=== PATIENT | male | born 1950 | race Caucasian/White ===

== ENCOUNTER → 2019-04-24 11:23 | Outpatient (BNVA) | payer MEDICARE, OTHER, SELFPAY | PROVIDERS: Visit Provider Internal Medicine Cardiovascular Disease | DX: I48.91 Unspecified atrial fibrillation (principal) | CPT/HCPCS: 85610 ==

== ENCOUNTER → 2019-05-22 11:31 | Outpatient (BNVA) | payer MEDICARE, OTHER, SELFPAY | PROVIDERS: Family Provider Family Medicine; Visit Provider Internal Medicine Cardiovascular Disease | DX: I48.91 Unspecified atrial fibrillation (principal); Z98.890 Other specified postprocedural states | CPT/HCPCS: 85610 ==

== ENCOUNTER → 2019-06-19 11:20 | Outpatient (BNVA) | payer MEDICARE, OTHER, SELFPAY | PROVIDERS: Family Provider Family Medicine; Visit Provider Internal Medicine Cardiovascular Disease | DX: I48.91 Unspecified atrial fibrillation (principal) | CPT/HCPCS: 85610 ==

== ENCOUNTER → 2019-12-25 13:29 | Outpatient (BNVA) | payer MEDICARE, OTHER, SELFPAY | PROVIDERS: Family Provider Family Medicine; Visit Provider Internal Medicine Cardiovascular Disease | DX: I25.10 Atherosclerotic heart disease of native coronary artery without angina pectoris (principal); I48.91 Unspecified atrial fibrillation; I50.9 Heart failure, unspecified; I73.9 Peripheral vascular disease, unspecified | CPT/HCPCS: 80048; 85025 ==

== ENCOUNTER 2020-06-27 18:34 | Emergency (ER) | payer MEDICARE, OTHER, SELFPAY ==
[2020-06-27 18:59] VITALS: BP 143/74; PULSE 86; RESP 18; TEMP 36.3; O2SAT 97; BMI 26.9
--- NOTE | 2020-06-27 19:37 | W.ED.GENADLT ---
HPI - General Adult General: Chief complaint: General Medical Stated complaint: took 3 billy seltzer plus promax gels, halluctinati Time Seen by Provider: 06/27/20 19:36 Source: patient Mode of arrival: ambulatory Limitations: no limitations History of Present Illness: HPI narrative: Patient for the last 3 days had been using some fmlj-ugk-osvoblp Billy-Cordova plus cold medicine. His spouse noticed that he had been sleepwalking at night and having episodes of confusion. Patient reports feeling better today after figuring out that it was medication causing his issue. Patient's last dose of medicine was last night. Patient does report some increased nasal drainage and occasional increase in his shortness of breath. Patient has a history of coronary artery disease, CHF, and atrial fibrillation. Patient comes in tonight just for concerns that nothing else was going on causing the symptoms. Associated symptoms: Reports dyspnea Review of Systems General: Reports: 10 or more systems reviewed and unremarkable except in HPI and below Resp: Reports: dyspnea [facility] ED PFSH: Medical History Asthma Atherosclerosis Atrial fibrillation CAD (coronary artery disease) CHF (congestive heart failure) History of DVT (deep vein thrombosis) Peripheral Vascular Disease Surgical History S/P AAA (abdominal aortic aneurysm) repair S/P CABG (coronary artery bypass graft) Family History Mother Diabetes Father Hypertension Social History Smoking and tobacco status: current every day smoker cigarettes Physical Exam Const: COMMON NORMALS: no acute distress and patient oriented x3 GENERAL APPEARANCE: cooperative HENMT: COMMON NORMALS: normocephalic and Normal external nose present HEAD & SCALP: normal to inspection and normocephalic NOSE: Normal external nose present MOUTH: Normal oral and palatal mucosa present THROAT: posterior oropharynx normal Eye: GENERAL EYE: appearance normal, both eyes and all related structures Neck/C-Spine: COMMON NORMALS: full ROM Lymph: LYMPHATIC: no lymphadenopathy noted Chest: COMMONS NORMALS: normal inspection of the chest Resp: COMMON NORMALS: normal respiratory effort EFFORT & INSPECTION: Yes able to speak in complete sentences Cardio: COMMON NORMALS: regular rate and regular rhythm RATE: regular rate RHYTHM: regular rhythm GI: COMMON NORMALS: non-tender : COMMON NORMALS: Yes no CVA tenderness BLADDER/KIDNEY EXAM: Yes no CVA tenderness Back/Pelvis: COMMON NORMALS: no CVA tenderness and thoracic and lumbar spine normal to inspection Extremity: COMMON NORMALS: normal to inspection Neuro: COMMON NORMALS: patient oriented x3 and moves all extremities Psych: COMMON NORMALS: mental status grossly normal and cooperative Skin: COMMON NORMALS: no rashes or lesions noted GENERAL SKIN EXAM: no rashes or lesions noted Course Vital Signs: Vital signs: Vital Signs Temperature 97.3 F L 06/27/20 18:59 Pulse Rate 80 06/27/20 20:04 Respiratory Rate 18 06/27/20 18:59 Blood Pressure 119/67 06/27/20 20:04 Pulse Oximetry 95 06/27/20 20:04 MDM - General Adult MDM Narrative: Medical decision making narrative: Patient comes in today due to concerns of difficulty sleeping and hallucinations. Patient had been using some lgef-ndq-xmztias Billy-Cordova cold medicine and had noticed that it could cause the symptoms. Patient came in to be checked due to his history of congestive heart failure. On exam lungs are decreased in the bases but no adventitious sounds. Heart rates irregular. Skin is warm and dry. Vital signs were normal. Differential diagnosis includes adverse drug effect, pneumonia, CHF, dementia. Laboratory values were unremarkable. Chest x-ray noted cardiomegaly. Reviewed exam with patient with recommendations for treatment and follow-up. Patient reported understanding agreed to plan. Lab Data: Labs: Lab Results 06/27/20 06/27/20 Range/Units 20:02 20:02 WBC 7.5 (4.0-10.0) 10^3/ uL RBC 4.31 (4.1-5.3) 10^6/u L Hgb 14.6 (11.7-16.6) g/dL Hct 45.3 (42.0-52.0) % MCV 105.1 H (80-94) fL MCH 33.9 (28.0-34.0) pg MCHC 32.2 (30.0-36.0) g/dL RDW 14.5 (12.1-15.1) % Plt Count 153 (130-400) 10^3/c mm MPV 10.6 H (7.4-10.4) fL Neut % (Auto) 60.9 % Lymph % (Auto) 27.0 % [place] % (Auto) 9.5 % Eos % (Auto) 1.2 % Baso % (Auto) 1.3 % Neut # (Auto) 4.56 (1.8-7.7) 10^3/u L Lymph # (Auto) 2.0 (0.8-4.8) 10^3/u L [place] # (Auto) 0.7 (0.2-0.9) 10^3/u L Eos # (Auto) 0.1 (0.0-0.8) 10^3/u L Baso # (Auto) 0.1 (0.0-0.1) 10^3/u L Nucleated RBC % (a uto) 0 % Nucleated RBCs # 0.0 /100WBC Sodium 137 (136-145) mmol/L Potassium 3.7 (3.5-5.1) mmol/L Chloride 100 (98-107) mmol/L Carbon Dioxide 24 (22-29) mmol/L Anion Gap 16.7 (5-19) BUN 19 (8-23) mg/dL Creatinine 0.8 (0.7-1.2) mg/dL GFR Calculation Not Reportable Glucose 102 (65-115) mg/dL Calculated Osmolal ity 286 (285-295) mOsm/k g Calcium 9.2 (8.5-10.5) mg/dL Total Bilirubin 2.2 H (0.15-1.2) mg/dL AST 24 (0-40) U/L ALT 30 (0-41) U/L Alkaline Phosphata se 73 (40-130) IU/L Total Protein 7.0 (6.6-8.7) g/dL Albumin 3.9 (3.5-5.2) g/dL Globulin 3.1 (1.3-4.6) g/dL EKG Data^: EKG 1: Attestation: I personally reviewed and interpreted this EKG as follows: (2009, EKG shows a sinus rhythm with frequent PVCs. No ST elevation. Left ventricular hypertrophy was noted on the EKG also. Artifact was present.) Discharge Plan Discharge Patient Disposition: Home Clinical Impression: Adverse drug effect Qualifiers: Encounter type: initial encounter Qualified Code(s): T50.905A - Adverse effect of unspecified drugs, medicaments and biological substances, initial encounter CHF (congestive heart failure) Qualifiers: Heart failure type: unspecified Heart failure chronicity: chronic Qualified Code(s): I50.9 - Heart failure, unspecified Condition: Stable Prescriptions: No Action diphenhydramine HCl [Benadryl] 25 mg capsule 25 mg PO DAILY PRNRF: 0 simvastatin 40 mg tablet 40 mg PO QDAY 90 Days Qty: 90 RF: 4 aspirin [Adult Low Dose Aspirin] 81 mg tablet,delayed release (DR/EC) 81 mg PO QDAY RF: 0 montelukast [Singulair] 10 mg tablet 10 mg PO DAILY RF: 0 warfarin 4 mg tablet 4 mg PO DIRECTED Qty: 90 RF: 1 warfarin 1 mg tablet 1 mg PO TID Qty: 270 RF: 0 warfarin 5 mg tablet 5 mg PO DIRECTED RF: 0 potassium chloride [Klor-Con M20] 20 mEq tablet,ER particles/crystals 20 meq PO BID Qty: 180 RF: 3 furosemide 80 mg tablet 80 mg PO BID Qty: 180 RF: 3 Discharge Orders: Discharge ED (Routine); Ordered 06/27/20 Ordered By: Casper Juarez Referrals: Ibrahima Haynes MD [Primary Care Provider] - Discharge Diet: Usual diet Discharge Activity: Increase activity as tolerated Patient Instructions: Altered Mental Status (ED), Opioid Safety Activity Restrictions/Additional Instructions: Avoid the use of medications with phenylephrine or dextromethorphan. I would recommend not using diphenhydramine routinely for your allergy symptoms. It is recommended that people over the age of 65 avoid Benadryl. Diphenhydramine, Benadryl, sometimes can lead to confusion or insomnia. You can use loratadine, Claritin, or cetirizine, Zyrtec, for allergy symptoms. These 2 medications have been proven to be much safer in the older population. Continue with routine medications otherwise as prescribed. Follow-up with primary care or independent living specialist for other treatment. Return to the emergency department for new concerns. Coding Level of Care Code ED Can Line Examiner for Ilene Fwd Exam Comprehensive
--- NOTE | 2020-06-27 19:49 | XRR_ITS ---
PROCEDURE INFORMATION: Exam: XR Chest Exam date and time: 06/27/2020 7:53 PM Age: 69 years old Clinical indication: Dyspnea; Additional info: Dyspnea on exertion TECHNIQUE: Imaging protocol: XR of the chest Views: 1 view. COMPARISON: CR Chest 1 view [id number] 08/03/2017 5:10 AM FINDINGS: Lungs: The lungs are hyperinflated, consistent with COPD. Mild pulmonary venous congestion demonstrated. No consolidative pulmonary infiltrates are noted. Pleural spaces: No pleural effusion. No pneumothorax. Heart/Mediastinum: Cardiomegaly is present. Vasculature: The thoracic aorta is mildly atherosclerotic. Bones/joints: Median sternotomy noted. XR/XR chest 1V portable [id number] IMPRESSION: 1. Cardiomegaly is present. 2. The lungs are hyperinflated, consistent with COPD. 3. Mild pulmonary venous congestion demonstrated. No consolidative pulmonary infiltrates are noted. 4. There is no interval change from the prior examination.
--- NOTE | 2020-06-27 19:54 | ECG_ITS ---
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 Measurements Intervals [place] Rate: 76 P: 25 [place]: 167 QRS: 48 QRSD: 124 T: 236 QT: 443 QTc: 499 Interpretive Statements SINUS RHYTHM WITH FREQUENT VENTRICULAR PREMATURE COMPLEXES LEFT VENTRICULAR HYPERTROPHY AND ST-T CHANGE [VOLTAGE CRITERIA PLUS ST/T ABNORMALITY] Compared to ECG 07/31/2017 13:17:55 Ventricular premature complex(es) now present Left ventricular hypertrophy now present ST (T wave) deviation now present Myocardial infarct finding no longer present T-wave abnormality no longer present Possible ischemia no longer present Electronically Signed On 06-28-2020 22:38:17 CDT by Rissa Badillo M.D. [id number]
[2020-06-27 20:04] VITALS: BP 119/67; PULSE 80; O2SAT 95
[2020-06-27 20:07] LABS: Basophils # 0.1 10^3/uL (0.0-0.1); Basophils % 1.3 %; Eosinophils # 0.1 10^3/uL (0.0-0.8); Eosinophils % 1.2 %; Hematocrit 45.3 % (42.0-52.0); Hemoglobin 14.6 g/dL (11.7-16.6); Mean Corpuscular HGB Conc 32.2 g/dL (30.0-36.0); Mean Corpuscular Hemoglobin 33.9 pg (28.0-34.0); Mean Corpuscular Volume 105.1 fL (80-94); Mean Platelet Volume 10.6 fL (7.4-10.4); Monocytes # 0.7 10^3/uL (0.2-0.9); Monocytes % 9.5 %; Neutrophils # 4.56 10^3/uL (1.8-7.7); Neutrophils % 60.9 %; Nucleated Red Blood Cells % 0 %; Platelet Count 153 10^3/cmm (130-400); Red Blood Count 4.31 10^6/uL (4.1-5.3); Red Cell Distribution Width 14.5 % (12.1-15.1); White Blood Count 7.5 10^3/uL (4.0-10.0)
[2020-06-27 20:27] LABS: Alanine Aminotransferase 30 U/L (0-41); Albumin Level 3.9 g/dL (3.5-5.2); Alkaline Phosphatase 73 IU/L (40-130); Anion Gap 16.7 (5-19); Aspartate Amino Transferase 24 U/L (0-40); Blood Urea Nitrogen 19 mg/dL (8-23); Calcium 9.2 mg/dL (8.5-10.5); Carbon Dioxide 24 mmol/L (22-29); Chloride 100 mmol/L (98-107); Globulin 3.1 g/dL (1.3-4.6); Glucose 102 mg/dL (65-115); Osmolality Calculated 286 mOsm/kg (285-295); Potassium 3.7 mmol/L (3.5-5.1); Sodium 137 mmol/L (136-145); Total Bilirubin 2.2 mg/dL (0.15-1.2)
[2020-06-27 21:18] VITALS: BP 119/73; PULSE 78; O2SAT 99
[2020-06-27 21:19] VITALS: BP 119/73; PULSE 77; O2SAT 98
[2020-06-27 21:30] LABS: Add Urine Microscopic? NO
[2020-06-27 21:45] LABS: Bilirubin Urine Neg (Negative); Blood Urine Neg (Negative); Glucose Urine UA Norm (Normal); Ketones Urine Negative (Negative); Leukocyte Esterase Urine Negative (Negative); Nitrate Urine Negative (Negative); Protein Urine Neg (Negative); Specific Gravity, Urine 1.015 (1.005-1.030); Urine Appearance Clear (CLEAR); Urine Color Yellow (Yellow); Urobilinogen Urine Norm (Negative); pH Urine 5 (5-7)
== END 2020-06-27 21:22 | disposition home or self-care (01) ==
PROVIDERS: Emergency Provider Nurse Practitioner Family; PCP Family Medicine
DX: I50.9 Heart failure, unspecified (principal); T50.905A Adverse effect of unspecified drugs, medicaments and biological substances, initial encounter; Z79.82 Long term (current) use of aspirin; Z79.01 Long term (current) use of anticoagulants; I48.91 Unspecified atrial fibrillation; I25.10 Atherosclerotic heart disease of native coronary artery without angina pectoris; Z95.1 Presence of aortocoronary bypass graft; F17.210 Nicotine dependence, cigarettes, uncomplicated
CPT/HCPCS: 71045; 80053; 81003; 85025; 93005; 99283

== ENCOUNTER 2020-07-08 17:04 | Emergency (ER) | payer MEDICARE, OTHER, SELFPAY ==
[2020-07-08 17:06] VITALS: BP 135/65; PULSE 85; RESP 18; TEMP 36.8; O2SAT 96; BMI 26.4
[2020-07-08 17:16] VITALS: BP 127/80; PULSE 86; RESP 25; O2SAT 96
--- NOTE | 2020-07-08 17:27 | CTR_ITS ---
PROCEDURE INFORMATION: Exam: CT Head Without Contrast Exam date and time: 07/08/2020 5:30 PM Age: 69 years old Clinical indication: Pain; Fever; Headache; Additional info: Fall TECHNIQUE: Imaging protocol: Computed tomography of the head without contrast. Radiation optimization: All CT scans at this facility use at least one of these dose optimization techniques: automated exposure control; mA and/or kV adjustment per patient size (includes targeted exams where dose is matched to clinical indication); or iterative reconstruction. COMPARISON: No relevant prior studies available. RADIATION DOSE METRICS: Total DLP (mGy-cm): 1635.86 FINDINGS: Brain: No evidence of acute infarct. Subcortical deep white matter hypodensity in the left parietotemporal parenchyma. The overlying cortical stripe is maintained. No mass or mass effect. No intra axial hemorrhage. No extra axial fluid collection or hemorrhage. Cerebral ventricles: Symmetric and without enlargement. Bones/joints: No acute fracture. Paranasal sinuses: Visualized sinuses are well aerated. Mastoid air cells: Visualized mastoid air cells are well aerated. Soft tissues: No concerning abnormalities. CT/CT head wo con* [id number] IMPRESSION: 1. A hypodensity in the left parietotemporal parenchyma likely reflects subacute to chronic infarct. 2. No evidence of acute infarct or other acute abnormality. Radiation Dose CTDIVOL = (mGy): DLP = 1635.86 (mGy-cm)
--- NOTE | 2020-07-08 17:27 | XR_ITS ---
WS: [id number] Exam: XR chest 1V portable [id number] Date/Time of Exam: 07/08/2020 5:30 PM Reason For Exam: sob Comparison 06/27/2020. There is cardiac enlargement with pulmonary vascular congestion suggesting CHF. Trace right pleural e ffusion. No pneumothorax. No consolidating infiltrates. Signs of previous CABG surgery. Monitoring le ads superimpose the chest. Regional bony elements appear normal. XR/XR chest 1V portable [id number] IMPRESSION: 1. Cardiac enlargement with signs of congestive heart failure. Trace right pleu ral effusion.
--- NOTE | 2020-07-08 17:29 | ECG_ITS ---
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 Measurements Intervals [place] Rate: 79 P: 67 CT: 175 QRS: 44 QRSD: 125 T: 192 QT: 418 QTc: 480 Interpretive Statements SINUS RHYTHM WITH OCCASIONAL VENTRICULAR PREMATURE COMPLEXES LEFT VENTRICULAR HYPERTROPHY AND ST-T CHANGE [VOLTAGE CRITERIA PLUS ST/T ABNORMALITY] Compared to ECG 06/27/2020 20:10:47 No significant changes Electronically Signed On 07-08-2020 17:44:42 CDT by Samir Quinn M.D. [id number]
[2020-07-08 17:41] VITALS: BP 127/80; PULSE 81; RESP 25; O2SAT 96
--- NOTE | 2020-07-08 17:44 | W.ED.FALL ---
HPI - Fall General: Chief Complaint: Fall Stated Complaint: Post fall/SOB Drainage/ hallucination Time Seen by Provider: 07/08/20 17:17 Source: patient Mode of arrival: ambulatory Limitations: no limitations History of Present Illness: HPI Narrative: 69-year-old male states that he slipped out of bed this morning and struck his head. He states he has had a headache since then. States he has chronic bilateral foot pain. He also has a history congestive heart failure with a EF of 20%. He states he has difficulty laying flat due to this and he sleeps sitting up and on his elbow at times and that is why he fell this morning. Associated symptoms-after fall: Reports headache(s); Denies abdominal pain, chest pain or neck pain Review of Systems Const: Denies: fever(s), chills, body aches or change in appetite Eyes: Denies: blurry vision or eye discomfort ENMT: Denies: throat pain or dental pain Card: Denies: chest pain Resp: Denies: dyspnea GI: Denies: abdominal pain, nausea, vomiting or diarrhea : Denies: dysuria Musc: Denies: neck pain or back pain Skin/Breast: Denies: rash Neuro: Reports: headache(s) Psych: Denies: depression Chema/Lymph: Denies: easy bruising All/Imm: Denies: urticaria PFSH ED PFSH: Medical History Asthma Atherosclerosis Atrial fibrillation CAD (coronary artery disease) CHF (congestive heart failure) History of DVT (deep vein thrombosis) Peripheral Vascular Disease Surgical History S/P AAA (abdominal aortic aneurysm) repair S/P CABG (coronary artery bypass graft) Family History Mother Diabetes Father Hypertension Social History Smoking and tobacco status: current every day smoker cigarettes Physical Exam Const: COMMON NORMALS: no acute distress, patient oriented x3 and healthy appearing HENMT: COMMON NORMALS: normocephalic HEAD & SCALP: normocephalic OTHER: Contusion to left forehead Eye: COMMON NORMALS: Equal, round and reactive pupils present and EOMs intact bilaterally PUPIL: Yes Equal, round and reactive pupils present Neck/C-Spine: COMMON NORMALS: full ROM and supple Chest: COMMONS NORMALS: normal inspection of the chest and normal palpation of entire chest wall Resp: COMMON NORMALS: normal respiratory effort, No retractions, No use of accessory muscles and clear to auscultation bilaterally AUSCULTATION: clear to auscultation bilaterally Cardio: COMMON NORMALS: regular rate, regular rhythm and No murmurs present (Cardio) RATE: regular rate RHYTHM: regular rhythm GI: COMMON NORMALS: Normal to inspection, nondistended, normoactive bowel sounds present, Soft to palpation, non-tender and no masses PALPATION: Yes Soft to palpation Extremity: COMMON NORMALS: normal to inspection and full ROM Neuro: COMMON NORMALS: patient oriented x3, moves all extremities and no focal motor deficits Psych: COMMON NORMALS: mental status grossly normal, Normal thought process present and cooperative THOUGHT PROCESS: Normal thought process present Skin: COMMON NORMALS: no rashes or lesions noted and no wounds GENERAL SKIN EXAM: no rashes or lesions noted Course Vital Signs: Vital signs: Vital Signs Temperature 98.3 F 07/08/20 17:06 Pulse Rate 84 07/08/20 19:29 Respiratory Rate 15 07/08/20 19:29 Blood Pressure 118/64 07/08/20 19:29 Pulse Oximetry 92 07/08/20 19:29 MDM - Fall MDM Narrative: Medical decision making narrative: Patient presents here with multiple complaints. His main complaint was fall today with closed head injury. She had some slight weakness as well. His CT showed chronic infarct I did offer admission but he states that he is on aspirin and would like to go home. Patient has had a slight cough to with likely bronchitis will start him on Keflex. Patient's x-ray here is negative. He is stable for discharge and return if worsening. Lab Data: Labs: Lab Results 07/08/20 07/08/20 Range/Units 17:36 17:36 WBC 7.4 (4.0-10.0) 10^3/ uL RBC 4.47 (4.1-5.3) 10^6/u L Hgb 15.0 (11.7-16.6) g/dL Hct 46.4 (42.0-52.0) % MCV 103.8 H (80-94) fL MCH 33.6 (28.0-34.0) pg MCHC 32.3 (30.0-36.0) g/dL RDW 14.6 (12.1-15.1) % Plt Count 161 (130-400) 10^3/c mm MPV 10.9 H (7.4-10.4) fL Neut % (Auto) 57.0 % Lymph % (Auto) 28.4 % [place] % (Auto) 11.6 % Eos % (Auto) 1.2 % Baso % (Auto) 1.5 % Neut # (Auto) 4.21 (1.8-7.7) 10^3/u L Lymph # (Auto) 2.1 (0.8-4.8) 10^3/u L [place]agher # (Auto) 0.9 (0.2-0.9) 10^3/u L Eos # (Auto) 0.1 (0.0-0.8) 10^3/u L Baso # (Auto) 0.1 (0.0-0.1) 10^3/u L Nucleated RBC % (a uto) 0 % Nucleated RBCs # 0.0 /100WBC Sodium 139 (136-145) mmol/L Potassium 4.1 (3.5-5.1) mmol/L Chloride 100 (98-107) mmol/L Carbon Dioxide 26 (22-29) mmol/L Anion Gap 17.1 (5-19) BUN 26 H (8-23) mg/dL Creatinine 1.2 (0.7-1.2) mg/dL GFR Calculation Not Reportable Glucose 119 H (65-115) mg/dL Calculated Osmolal ity 294 (285-295) mOsm/k g Calcium 9.1 (8.5-10.5) mg/dL Total Bilirubin 2.7 H (0.15-1.2) mg/dL AST 26 (0-40) U/L ALT 43 H (0-41) U/L Alkaline Phosphata se 90 (40-130) IU/L NT-Pro-B Natriuret Pep 33499 H (0-125) pg/mL Total Protein 6.9 (6.6-8.7) g/dL Albumin 3.9 (3.5-5.2) g/dL Globulin 3.0 (1.3-4.6) g/dL Imaging Data^: CT Head: Attestation: I personally reviewed and interpreted this imaging study as follows: Radiologist's impression: [facility] [address] [place] [address] CT Scan Report Signed Patient: Grabiel Ferrara Unit #: [id number] : 1950 Age/Sex: 69 / M ADM Date: 07/08/20 Loc: ER Room/Bed: Attending Dr: Ordering Provider/Ordering MD: Garrick Fernández MD Date of Service: 07/08/20 Procedure(s): CT head wo con* [id number] Accession Number(s): [id number] Report Number: [id number] PROCEDURE INFORMATION: Exam: CT Head Without Contrast Exam date and time: 07/08/2020 5:30 PM Age: 69 years old Clinical indication: Pain; Fever; Headache; Additional info: Fall TECHNIQUE: Imaging protocol: Computed tomography of the head without contrast. Radiation optimization: All CT scans at this facility use at least one of these dose optimization techniques: automated exposure control; mA and/or kV adjustment per patient size (includes targeted exams where dose is matched to clinical indication); or iterative reconstruction. COMPARISON: No relevant prior studies available. RADIATION DOSE METRICS: Total DLP (mGy-cm): 1635.86 FINDINGS: Brain: No evidence of acute infarct. Subcortical deep white matter hypodensity in the left parietotemporal parenchyma. The overlying cortical stripe is maintained. No mass or mass effect. No intra axial hemorrhage. No extra axial fluid collection or hemorrhage. Cerebral ventricles: Symmetric and without enlargement. Bones/joints: No acute fracture. Paranasal sinuses: Visualized sinuses are well aerated. Mastoid air cells: Visualized mastoid air cells are well aerated. Soft tissues: No concerning abnormalities. CT/CT head wo con* [id number] IMPRESSION: 1. A hypodensity in the left parietotemporal parenchyma likely reflects subacute to chronic infarct. 2. No evidence of acute infarct or other acute abnormality. Radiation Dose CTDIVOL = (mGy): DLP = 1635.86 (mGy-cm) xr foot bilateral: Attestation: I personally reviewed and interpreted this imaging study as follows: My impression: no acute abnormality EKG Data^: EKG 1: Attestation: I personally reviewed and interpreted this EKG as follows: EKG interpretation date: 07/08/20 EKG interpretation time: 17:40 Interpretation: nsr hr [address] or t wave ab normalities qrs 125 qtc 452 Discharge Plan Discharge Patient Disposition: Home Clinical Impression: Bilateral foot pain Closed head injury Qualifiers: Encounter type: initial encounter Qualified Code(s): S09.90XA - Unspecified injury of head, initial encounter CVA (cerebrovascular accident) Qualifiers: CVA mechanism: unspecified Qualified Code(s): I63.9 - Cerebral infarction, unspecified Condition: Stable Prescriptions: New Keflex 750 mg capsule 750 mg PO BID 7 Days Qty: 14 RF: 0 No Action diphenhydramine HCl [Benadryl] 25 mg capsule 25 mg PO DAILY PRN (Reason: Allergy Symptoms) RF: 0 aspirin [Adult Low Dose Aspirin] 81 mg tablet,delayed release (DR/EC) 81 mg PO DAILY@1000 RF: 0 montelukast [Singulair] 10 mg tablet 10 mg PO DAILY@1000 RF: 0 warfarin 4 mg tablet 4 mg PO DIRECTED Qty: 90 RF: 1 warfarin 5 mg tablet 5 mg PO DIRECTED RF: 0 simvastatin 40 mg tablet 40 mg PO DAILY@1000 RF: 0 Klor-Con M20 20 mEq tablet,ER particles/crystals 20 meq PO BID@1000,2200 RF: 0 furosemide 80 mg tablet 80 mg PO BID@1000,2200 RF: 0 warfarin 1 mg tablet 8 mg PO DAILY@2200 RF: 0 Discharge Orders: Discharge ED (Routine); Ordered 07/08/20 Ordered By: Garrick Fenrández Referrals: Ibrahima Haynes MD [Primary Care Provider] - Discharge Diet: Advance as tolerated Discharge Activity: Resume usual activity Patient Instructions: Ischemic Stroke (GEN) Coding Level of Care Code ED R D Manager for Chg Fwd Exam Comprehensive
[2020-07-08 18:03] LABS: Basophils # 0.1 10^3/uL (0.0-0.1); Basophils % 1.5 %; Eosinophils # 0.1 10^3/uL (0.0-0.8); Eosinophils % 1.2 %; Hematocrit 46.4 % (42.0-52.0); Lymphocytes # 2.1 10^3/uL (0.8-4.8); Lymphocytes % 28.4 %; Mean Corpuscular HGB Conc 32.3 g/dL (30.0-36.0); Mean Corpuscular Hemoglobin 33.6 pg (28.0-34.0); Mean Corpuscular Volume 103.8 fL (80-94); Mean Platelet Volume 10.9 fL (7.4-10.4); Monocytes # 0.9 10^3/uL (0.2-0.9); Monocytes % 11.6 %; Neutrophils # 4.21 10^3/uL (1.8-7.7); Nucleated Red Blood Cells % 0 %; Platelet Count 161 10^3/cmm (130-400); Red Blood Count 4.47 10^6/uL (4.1-5.3); Red Cell Distribution Width 14.6 % (12.1-15.1); White Blood Count 7.4 10^3/uL (4.0-10.0)
--- NOTE | 2020-07-08 18:36 | PC.NURSE ---
Had an episode of retching and vomiting. States he feel better now
--- NOTE | 2020-07-08 19:08 | XR_ITS ---
WS: [id number] RIGHT FOOT: 3 VIEW(S) TECHNIQUE: AP, oblique and lateral. HISTORY: injury COMPARISON: None available. No acute fracture or dislocation. Mild diffuse osteopenia. No erosions. Hammertoe deformities. Normal tarsal/metatarsal alignment. No soft tissue abnormality or bone destruction. XR/XR foot RT min 3V* [id number] IMPRESSION: Osteopenia. No fractures.
--- NOTE | 2020-07-08 19:08 | XR_ITS ---
WS: [id number] LEFT FOOT: 3 VIEW(S) TECHNIQUE: AP, oblique and lateral. HISTORY: injury COMPARISON: None available. No acute fracture or dislocation. No erosions. No significant joint space narrowing. Normal tarsal/metatarsal alignment. No soft tissue abnormality or bone destruction. XR/XR foot LT min 3V* [id number] IMPRESSION: Osteopenia. No fracture identified.
[2020-07-08 19:11] LABS: Alanine Aminotransferase 43 U/L (0-41); Albumin Level 3.9 g/dL (3.5-5.2); Alkaline Phosphatase 90 IU/L (40-130); Anion Gap 17.1 (5-19); Aspartate Amino Transferase 26 U/L (0-40); Blood Urea Nitrogen 26 mg/dL (8-23); Calcium 9.1 mg/dL (8.5-10.5); Carbon Dioxide 26 mmol/L (22-29); Chloride 100 mmol/L (98-107); Glucose 119 mg/dL (65-115); NT Pro B Type Natriuretic Pept 14698 pg/mL (0-125); Osmolality Calculated 294 mOsm/kg (285-295); Potassium 4.1 mmol/L (3.5-5.1); Sodium 139 mmol/L (136-145); Total Bilirubin 2.7 mg/dL (0.15-1.2); Total Protein 6.9 g/dL (6.6-8.7)
[2020-07-08 19:29] VITALS: BP 118/64; PULSE 84; RESP 15; O2SAT 92
== END 2020-07-08 20:17 | disposition home or self-care (01) ==
PROVIDERS: Emergency Provider Emergency Medicine; PCP Family Medicine
DX: S09.8XXA Other specified injuries of head, initial encounter (principal); I63.9 Cerebral infarction, unspecified; M79.672 Pain in left foot; M79.671 Pain in right foot; Z79.82 Long term (current) use of aspirin; Z79.01 Long term (current) use of anticoagulants; I25.10 Atherosclerotic heart disease of native coronary artery without angina pectoris; I50.9 Heart failure, unspecified; Z95.1 Presence of aortocoronary bypass graft; F17.210 Nicotine dependence, cigarettes, uncomplicated; W06.XXXA Fall from bed, initial encounter
CPT/HCPCS: 70450; 71045; 73630; 80053; 83880; 85025; 93005; 99284

== ENCOUNTER 2020-07-25 20:22 | Inpatient (IN) | payer MEDICARE, OTHER, SELFPAY ==
[2020-07-25 20:27] VITALS: BP 124/63; PULSE 90; RESP 38; TEMP 36.6; O2SAT 100; BMI 30.3
[2020-07-25 20:32] VITALS: BP 128/67; PULSE 91; RESP 29; O2SAT 99
--- NOTE | 2020-07-25 20:38 | ECG_ITS ---
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 Measurements Intervals [place] Rate: 75 P: 78 [place]: 179 QRS: 67 QRSD: 127 T: 238 QT: 441 QTc: 494 Interpretive Statements SINUS RHYTHM WITH FREQUENT VENTRICULAR PREMATURE COMPLEXES POSSIBLE RIGHT VENTRICULAR CONDUCTION DELAY [RSR (QR) IN V1/V2] LEFT VENTRICULAR HYPERTROPHY AND ST-T CHANGE [VOLTAGE CRITERIA PLUS ST/T ABNORMALITY] PROBABLE INFERIOR MYOCARDIAL INFARCTION , OF INDETERMINATE AGE [35 ms Q WAVE IN II/aVF] Compared to ECG 07/08/2020 17:40:00 Myocardial infarct finding now present ST (T wave) deviation still present Electronically Signed On 07-26-2020 15:33:02 CDT by Samir Quinn M.D. [id number]
[2020-07-25 21:04] LABS: Basophils # 0.1 10^3/uL (0.0-0.1); Basophils % 1.4 %; Eosinophils # 0.1 10^3/uL (0.0-0.8); Eosinophils % 0.9 %; Hematocrit 48.2 % (42.0-52.0); Hemoglobin 15.5 g/dL (11.7-16.6); Lymphocytes # 1.3 10^3/uL (0.8-4.8); Lymphocytes % 17.6 %; Mean Corpuscular HGB Conc 32.2 g/dL (30.0-36.0); Mean Corpuscular Volume 102.6 fL (80-94); Mean Platelet Volume 10.5 fL (7.4-10.4); Monocytes # 0.6 10^3/uL (0.2-0.9); Monocytes % 7.9 %; Neutrophils # 5.31 10^3/uL (1.8-7.7); Neutrophils % 71.9 %; Nucleated Red Blood Cells % 0 %; Platelet Count 166 10^3/cmm (130-400); Red Cell Distribution Width 14.1 % (12.1-15.1); White Blood Count 7.4 10^3/uL (4.0-10.0)
[2020-07-25 21:22] LABS: INR 1.89 (0.8-1.2)
[2020-07-25 21:24] LABS: D Dimer 0.42 ug/mIFEU (0-0.59)
[2020-07-25 21:30] LABS: Lactic Sepsis W/Reflex 2.1 mmol/L (0.5-2.2)
[2020-07-25 21:32] LABS: Troponin(5th) Baseline 83 ng/L (0-15)
[2020-07-25 21:42] LABS: Alanine Aminotransferase 25 U/L (0-41); Alkaline Phosphatase 78 IU/L (40-130); Anion Gap 17.5 (5-19); Aspartate Amino Transferase 27 U/L (0-40); Blood Urea Nitrogen 32 mg/dL (8-23); Calcium 8.4 mg/dL (8.5-10.5); Carbon Dioxide 23 mmol/L (22-29); Chloride 95 mmol/L (98-107); Globulin 2.5 g/dL (1.3-4.6); Glucose 139 mg/dL (65-115); NT Pro B Type Natriuretic Pept 14117 pg/mL (0-125); Osmolality Calculated 283 mOsm/kg (285-295); Potassium 3.5 mmol/L (3.5-5.1); Sodium 132 mmol/L (136-145); Total Bilirubin 1.8 mg/dL (0.15-1.2); Total Protein 6.5 g/dL (6.6-8.7)
[2020-07-25 21:42] LABS: ABG PH Result 7.48 (7.35-7.45); Arterial Blood Gas Hematocrit 49.1 % (42-52); Base Excess ABG 3.5 mmol/L (-2.0-2.0); Blood Gas Allen Test Pos; Blood Gas Sample Site Radial, left; Blood Gas Sample Type Arterial; HCO3 ABG 26.8 mmol/L (22-26); Oxygen Device ROOM AIR
[2020-07-25 21:57] LABS: Influenza A by IFA Negative (Negative); Influenza B by IFA Negative (Negative); SARS Covid-2 Antigen Negative (Negative)
[2020-07-25] MEDS: OLANZapine 10 mg VIAL 5 MG IM (22:25)
[2020-07-25 22:31] VITALS: BP 119/61; PULSE 96; RESP 32; O2SAT 97
--- NOTE | 2020-07-25 22:38 | ECG_ITS ---
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 Measurements Intervals [place] Rate: 77 P: 66 [place]: 161 QRS: 76 QRSD: 120 T: 263 QT: 440 QTc: 500 Interpretive Statements SINUS RHYTHM WITH OCCASIONAL VENTRICULAR PREMATURE COMPLEXES POSSIBLE RIGHT VENTRICULAR CONDUCTION DELAY [RSR (QR) IN V1/V2] LEFT VENTRICULAR HYPERTROPHY AND ST-T CHANGE [VOLTAGE CRITERIA PLUS ST/T ABNORMALITY] PROBABLE INFERIOR MYOCARDIAL INFARCTION , OF INDETERMINATE AGE [35 ms Q WAVE IN II/aVF] Compared to ECG 07/25/2020 20:54:47 No significant changes Electronically Signed On 07-26-2020 15:36:40 CDT by Samir Quinn M.D. [id number]
[2020-07-25 22:50] LABS: Reflex Lactate Order REFLEX LACTIC ORDERD
--- NOTE | 2020-07-25 22:55 | PC.NURSE ---
pt found in his room, with loss of bladder control, pt pulled his IV out. When asked if pt still wanting receive medical attention, pt states he was not the pt, states he was trying to help someone out but did not say who was needing his help. When informed that he was brought in by EMS, pt states he has no memory of events leading to EMS call. notified of pt change in mentation status. vo obtained for IM medication. Pt changed into paper scrubs, linens changed. IM meds adm without difficulty. Medication effective in helping pt's agitation. notified.
--- NOTE | 2020-07-25 23:07 | P.HP_ITS ---
Providers/Chief Complaint Primary Care Provider: Ibrahima Haynes MD Chief Complaint: SHORT OF BREATH History of Present Illness Grabiel Ferrara is a 69 year old male who was brought in by EMS for chief complaint of worsening shortness of breath. and [id number] at the bedside, is stating that his personality has changed significantly in last 3 to 4 weeks, however since February she has been noticing that he is more drowsy and get sleep apnea spells and sometimes sleep while he is driving. No seizure-like activity noticed by his . In last 3 weeks he has been very mean and derogatory towards his , he smokes about 1 to 1.5 pack/day, noncompliant with his medications, experiencing visual hallucinations, he is walking around his house with a flashlight especially at night, he does not do well in the dark. As per the he experienced stroke 3 to 4 weeks ago and since then he has been experiencing drooling of his saliva. His gait is abnormal which is chronic he takes very short/baby steps. No history of Parkinson's or neurodegenerative family history. Today surprising to his patient stated that ambulance to be called because of worsening of shortness of breath, he did not complain of any chest pain, no fever, vomiting episodes at home Diagnostics in the ER revealed normal CBC, hemodynamically he is stable however tachypnea has pursed lip breathing, was very irritable and agitated, ABG revealed respiratory alkalosis with hypoxia on room air he is currently requiring 2 L of nasal cannula, downtrending troponin bilirubin 1.8, glucose was normal COVID-19 is negative, EKG showing right bundle branch block, PVCs otherwise sinus rhythm no infarctive or ischemic changes, worsening BNP I requested CT head without contrast, in the ER he received 10 mg of Zyprexa however QTC borderline prolonged 496 Review of Systems General: Reports: ROS unobtainable due to medical condition (Hyperactive delirium) Medications/Allergies Home Medications Medication Instructions Recorded Confirmed Last Taken Type warfarin 5 mg tablet 5 mg PO DIRECTED tab 05/02/19 07/23/20 Unknown History aspirin 81 mg tablet,delayed 81 mg PO DAILY@1000 05/13/19 07/15/20 07/08/20 History release diphenhydramine HCl 25 mg capsule 25 mg PO DAILY PRN cap 05/13/19 07/15/20 Unknown History montelukast 10 mg tablet 10 mg PO DAILY@1000 05/12/20 07/15/20 07/08/20 History warfarin 4 mg tablet 4 mg PO DIRECTED #90 tab 05/12/20 07/23/20 Unknown Rx Klor-Con M20 20 meq PO BID@1000,2200 07/08/20 07/15/20 07/08/20 History furosemide 80 mg PO BID@1000,2200 07/08/20 07/15/20 07/08/20 History warfarin 8 mg PO DAILY@2200 07/08/20 07/23/20 07/07/20 History simvastatin 40 mg tablet 40 mg PO DAILY@1000 #90 tab 07/14/20 07/15/20 Unknown Rx albuterol sulfate 2.5 mg INHALATION Q4H PRN #360 ml 07/15/20 07/15/20 Unknown Rx albuterol sulfate 90 mcg/actuation 1 inh INHALATION QID PRN #8.5 g 07/15/20 07/15/20 Unknown Rx aerosol inhaler metolazone 2.5 mg tablet 2.5 mg PO .As needed 30 Days #15 07/15/20 07/15/20 Unknown Rx tab nebulizer accessories #1 ea 07/15/20 07/15/20 Unknown Rx budesonide 160 mcg-glycopyr 9 2 inh INHALATION BID #10.7 g 07/16/20 07/16/20 Unknown Rx mcg-formot 4.8 mcg/actuation HFA inhaler cephalexin 500 mg capsule 500 mg PO BID 7 Days #14 cap 07/23/20 07/23/20 Unknown Rx mupirocin 2 % topical ointment 1 applic TOPICAL TID 7 Days #15 g 07/23/20 07/23/20 Unknown Rx quetiapine 25 mg tablet 25 mg PO DAILY 07/23/20 07/23/20 Unknown History Allergies Allergy/AdvReac Type Severity Reaction Status Date / Time No Known Allergies Allergy Verified 07/25/20 20:32 PFSH Acute PFSH: Medical History Atherosclerosis Atrial fibrillation CAD (coronary artery disease) CHF (congestive heart failure) Chronic obstructive pulmonary disease History of DVT (deep vein thrombosis) Peripheral Vascular Disease Surgical History S/P AAA (abdominal aortic aneurysm) repair S/P CABG (coronary artery bypass graft) Family History Mother Diabetes Father Hypertension Social History Smoking and tobacco status: current every day smoker cigarettes Packs smoked per day: 0.5 Years cigarettes smoked: 55 [ Other cigarette details: Hx of 1.5 PPD x 30 Years ] Quit status (tobacco): considering quitting Second hand smoke exposure: Yes Smoking risk assessment/counseling performed?: Yes Alcohol intake: former Counseling given: No Counseling given: No Lives independently: Yes Household members: spouse Marital status: Current occupational status: retired History of recent travel: No Current gender identity: Male Vitals/I&O/Wt Last Vital Signs Temp 97.9 F 07/25/20 20:27 Pulse 91 07/25/20 20:32 Resp 29 H 07/25/20 20:32 BP 128/67 07/25/20 20:32 Pulse Ox 99 07/25/20 20:32 Weight last 48 hrs Weight 104.326 kg Physical Exam Narrative: EXAM NARRATIVE: Middle-age male He is currently saturating well on 2 L nasal cannula He received 10 mg of Zyprexa currently not cooperative for clinical exam however Pursed lip breathing no active cyanosis S1, S2 clinical signs of fluid overload bilateral lower extremity edema Venous stasis dermatitis Pupils equal and symmetrical reactive to light No nystagmus or seizure-like activities Abdomen soft nontender Bilateral breath sounds with rhonchi bilaterally, mild tachypnea No joint swelling Unkempt appearance Data : 07/25/20 20:45 07/25/20 20:45 A&P Assessment and plan (1) CHF exacerbation: Status: Acute (2) Acute hyperactive delirium due to another medical condition: Status: Acute (3) Peripheral Vascular Disease: Status: Acute (4) Shortness of breath: Status: Acute (5) Acute respiratory failure with hypoxia: Status: Acute (6) COPD exacerbation: Status: Acute (7) Personality change: Status: Acute Additional A&P Information Acute CHF exacerbation Clinically looks fluid overloaded worsening BNP, I will keep him on Bumex 1 mg daily, patient has been noncompliant with his medication, previous echo reveals ejection fraction of 20% which was done in 2017 EKG is not showing any ischemic or infarctive changes no ACS syndrome I do believe his symptoms are secondary to worsening of underlying CHF due to active smoking and noncompliance Acute hypoxia with COPD exacerbation Currently requiring 2 L nasal cannula, [id number] smoking history, D-dimer unremarkable ABG revealed relative hypoxia on room air with a respiratory alkalosis, will obtain chest x-ray as well We will keep him on CPAP overnight, patient's does endorse sleep apnea at home she counted up to 20 seconds, he has been experiencing visual hallucination, personality change and very dangerous driving habits, is endorsing that he falls asleep while driving I recommended his that he should not drive at all and if he does not quit driving should be reported to the police department as she is putting others at risk of injury Does follow-up with Dr. Monroy who recommended sleep study Personality change in visual hallucination No history of Parkinson's, considering anything smoking history will like to rule out malignancy, requested CT head without contrast no active strokelike symptoms Patient did experience CVA few weeks back which was deemed secondary to A. fib/ischemic event, recurrent CVA not ruled out For agitation I will use Ativan & avoid antipsychotics because of QT prolongation 496 on EKG, as per the patient did not do well with Seroquel, we will keep him on one-to-one supervision because of his aggressive behavior with the medical staff A. fib without acute RVR: Continue Coumadin his INR is 1.8 Rate controlled without use of any AV stewart blocking agent Goals of care discussed with the : is stating that he expresses wishes to the family that he does not want any kind resuscitation with chest compressions, he will stay DNR/DNI N.p.o. except medications, advance diet once he is more awake and alert DVT prophylaxis not indicated due to Coumadin use Attestations Medical Necessity Statement*: Anticipating discharge in less than 48 hours will need extensive diuresis and work-up for personality change Time Spent in Patient Care: 40mins Coding Level of Care Code Acute [employer] for Chg Fwd Diagnoses CHF exacerbation I50.9 Acute hyperactive delirium due to another medical condition F05 Peripheral Vascular Disease I73.9 Shortness of breath R06.02 Acute respiratory failure with hypoxia J96.01 COPD exacerbation J44.1 Personality change F68.8
[2020-07-25 23:12] LABS: Troponin 5 2HR 78.98 ng/L (0-15)
[2020-07-25 23:17] LABS: Troponin 5 2HR Delta -4.02 ABS# (0-10)
[2020-07-25 23:31] VITALS: BP 129/60; PULSE 85; RESP 32; O2SAT 98
[2020-07-26] VITALS (65 sets, daily range): BP systolic 94–128; BP diastolic 56–77; PULSE 63–104; RESP 7–55; TEMP 36.1–36.9; O2SAT 85–100
--- NOTE | 2020-07-26 00:33 | CTR_ITS ---
PROCEDURE INFORMATION: Exam: CT Head Without Contrast Exam date and time: 07/26/2020 12:40 AM Age: 69 years old Clinical indication: Altered mental status/memory loss; Additional info: AMS TECHNIQUE: Imaging protocol: Computed tomography of the head without contrast. Radiation optimization: All CT scans at this facility use at least one of these dose optimization techniques: automated exposure control; mA and/or kV adjustment per patient size (includes targeted exams where dose is matched to clinical indication); or iterative reconstruction. COMPARISON: CT head wo con* [id number] 07/08/2020 6:48 PM RADIATION DOSE METRICS: Total DLP (mGy-cm): 2060.99 FINDINGS: Brain: There is mild parenchymal atrophy and chronic small vessel disease. Stable left parietal lobe and left insular cortex encephalomalacia. No acute infarct or hemorrhage. Cerebral ventricles: No ventriculomegaly. Bones/joints: Unremarkable. No acute fracture. Paranasal sinuses: Paranasal sinuses are clear. No air-fluid level. Mastoid air cells: Visualized mastoid air cells are clear. Soft tissues: Unremarkable. CT/CT head wo con* [id number] IMPRESSION: 1. No acute infarct or hemorrhage. 2. Mild parenchymal atrophy and chronic small vessel disease. 3. 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 Radiation Dose CTDIVOL = (mGy): DLP = 2060.99 (mGy-cm)
--- NOTE | 2020-07-26 00:36 | ED_ITS ---
HPI - SOB/Dyspnea General: Chief Complaint: Shortness of Breath/Dyspnea Stated Complaint: SHORT OF BREATH Time Seen by Provider: 07/25/20 20:30 Source: patient and EMS Mode of arrival: EMS Limitations: no limitations History of Present Illness: MD elicited complaint: shortness of breath Pertinent past history: congestive heart failure Onset (ago): day(s) Timing: constant Severity: moderate Exacerbating factors: lying flat Relieving factors: nothing Known history of: congestive heart failure Associated symptoms: Reports cough; Deny abdominal pain, chest congestion, chest pain, diaphoresis, dizziness, extremity pain, fever(s), hemoptysis, lightheadedness, myalgias, nausea, orthopnea, palpitations, paresthesias, polydipsia, polyuria, rash, sense of impending doom, syncope or vomiting Treatment prior to arrival: none Review of Systems General: Reports: 10 or more systems reviewed and unremarkable except in HPI and below Const: Denies: fever(s) or diaphoresis Card: Denies: chest pain, palpitations, lightheadedness, syncope or orthopnea Resp: Denies: hemoptysis or chest congestion GI: Denies: abdominal pain, nausea or vomiting Musc: Denies: extremity pain Neuro: Denies: dizziness Endo: Denies: polyuria or polydipsia PFSH ED PFSH: Medical History (Updated 07/26/20 @ 12:20 by Sharmila Pitts MD, [facility]) AAA (abdominal aortic aneurysm) Atherosclerosis Atrial fibrillation CAD (coronary artery disease) CHF (congestive heart failure) Chronic obstructive pulmonary disease History of DVT (deep vein thrombosis) HTN (hypertension) Peripheral Vascular Disease Surgical History (Updated 07/26/20 @ 01:32 by Daphnie Palacios MD) History of lung biopsy S/P AAA (abdominal aortic aneurysm) repair S/P CABG (coronary artery bypass graft) S/P cataract surgery S/P knee surgery S/P knee surgery left S/P LASIK surgery of both eyes S/P lens implant 2015 Family History Mother Diabetes Father Hypertension Social History Smoking and tobacco status: current every day smoker cigarettes Packs smoked per day: 0.5 Years cigarettes smoked: 55 [ Other cigarette details: Hx of 1.5 PPD x 30 Years ] Quit status (tobacco): considering quitting Second hand smoke exposure: Yes Smoking risk assessment/counseling performed?: Yes Alcohol intake: former Counseling given: No Counseling given: No Lives independently: Yes Household members: spouse Marital status: Current occupational status: retired History of recent travel: No Current gender identity: Male Physical Exam Const: COMMON NORMALS: no acute distress, average body habitus, patient orien claude x3, no limitations, healthy appearing, alert and well nourished HENMT: COMMON NORMALS: normocephalic, atraumatic and moist oral mucous membran es HEAD & SCALP: normocephalic and atraumatic Neck/C-Spine: COMMON NORMALS: no meningeal signs and no JVD Resp: COMMON NORMALS: normal respiratory effort, No retractions, No use of accessory muscles and percussion normal EFFORT & INSPECTION: Yes tachypneic and Yes pursed lip breathing AUSCULTATION: rales bilateral 1/[address] up PERCUSSION: percussion normal Cardio: COMMON NORMALS: no JVD, regular rate, regular rhythm, S1 normal heart sound present, S2 normal heart sound present, No gallops present (Cardio), No clicks present (Cardio), No murmurs present (Cardio), No rub (Cardio) and Peripheral pulses 2+ throughout RATE: regular rate RHYTHM: regular rhythm HEART SOUNDS: S1 normal heart sound present and S2 normal heart sound present PERIPHERAL PULSES: Peripheral pulses 2+ throughout GI: COMMON NORMALS: Normal to inspection, nondistended, normoactive bowel sounds present, Soft to palpation, non-tender, No hepatosplenomegaly present, no masses and no bruits PALPATION: Yes Soft to palpation and Yes No hepatosplenomegaly present Extremity: COMMON NORMALS: normal to inspection, full ROM, capillary refill normal, no calf tenderness and no pedal edema Neuro: COMMON NORMALS: patient oriented x3 SENSORIUM/ORIENTATION: Yes alert MENINGEAL SIGNS: Yes no meningeal signs Skin: COMMON NORMALS: no rashes or lesions noted, no wounds, turgor normal, no jaundice, no petechiae and no mottling GENERAL SKIN EXAM: no rashes or lesions noted and turgor normal Course Reevaluation(s): Reevaluation #1: The patient's is now available and I discussed his lab and imaging findings with her. I explained clinical findings including that he is in CHF. Earlier during resuscitation of another patient and the nurse informed me that this patient was very confused and did not know why he was here and when I brought this up to his she explained that he gets that way every evening and has been that way for at least 4 months. She said he gets very confused in the evening starts to hallucinate, his speech does not make sense. So this is not new for him according to her. Advised that he will be admitted to the hospital and she voiced understanding and is in agreement with the plan. Time: 23:15 Consultations: Consultation #1: Discussed the patient with Dr. Palacios, hospitalist and he kindly accepted patient to his service. Time: 23:00 Vital Signs: Vital signs: Vital Signs Temperature 97.5 F L 07/26/20 08:00 Pulse Rate 77 07/26/20 09:11 Respiratory Rate 26 H 07/26/20 09:07 Blood Pressure 94/56 07/26/20 08:00 Pulse Oximetry 97 07/26/20 09:07 MDM - SOB/Dyspnea MDM Narrative: Medical decision making narrative: 69-year-old male who presents to the emergency department with shortness of breath. Evaluation in the emergency department is consistent with CHF exacerbation. He was given 40 mg of intravenous furosemide while in the ambulance. He appeared to be sundowning while in the emergency department and became confused and altered but his states that this is normal for him over the last 4 months. He is admitted to the hospital for further evaluation and management. He was requiring oxygen supplementation as he was hypoxic in the emergency room. He does not use oxygen at home. Medical Records: Attestation: I reviewed the patient's medical records. Lab Data: Attestation: I reviewed the patient's lab results. Labs: Lab Results 07/25/20 07/25/20 07/25/20 Range/Units 02:27 20:45 20:45 WBC 7.4 (4.0-10.0) 10^3/ uL RBC 4.70 (4.1-5.3) 10^6/u L Hgb 15.5 (11.7-16.6) g/dL Hct 48.2 (42.0-52.0) % MCV 102.6 H (80-94) fL MCH 33.0 (28.0-34.0) pg MCHC 32.2 (30.0-36.0) g/dL RDW 14.1 (12.1-15.1) % Plt Count 166 (130-400) 10^3/c mm MPV 10.5 H (7.4-10.4) fL Neut % (Auto) 71.9 % Lymph % (Auto) 17.6 % [place] % (Auto) 7.9 % Eos % (Auto) 0.9 % Baso % (Auto) 1.4 % Neut # (Auto) 5.31 (1.8-7.7) 10^3/u L Lymph # (Auto) 1.3 (0.8-4.8) 10^3/u L [place] # (Auto) 0.6 (0.2-0.9) 10^3/u L Eos # (Auto) 0.1 (0.0-0.8) 10^3/u L Baso # (Auto) 0.1 (0.0-0.1) 10^3/u L Nucleated RBC % (a uto) 0 % Nucleated RBCs # 0.0 /100WBC PT 22.30 H (12.1-14.9) SECO NDS INR 1.89 H (0.8-1.2) D-Dimer 0.42 (0-0.59) ug/mIFE U Specimen Type Sample Site ABG pH (7.35-7.45) ABG pCO2 (35-45) mmHg ABG pO2 (80.0-100.0) mmH g ABG HCO3 (22-26) mmol/L ABG Base Excess (-2.0-2.0) mmol/ L José Luis Test Hematocrit (42-52) % O2 Delivery Device O2 Liters/Min % FiO2 % Space Systems Operations Superintendent ID Sodium (136-145) mmol/L Potassium (3.5-5.1) mmol/L Chloride (98-107) mmol/L Carbon Dioxide (22-29) mmol/L Anion Gap (5-19) BUN (8-23) mg/dL Creatinine (0.7-1.2) mg/dL GFR Calculation Glucose (65-115) mg/dL Calculated Osmolal ity (285-295) mOsm/k g Lactic Acid (0.5-2.2) mmol/L Lactic Acid (Sepsi s) 1.4 (0.5-2.2) mmol/L Calcium (8.5-10.5) mg/dL Total Bilirubin (0.15-1.2) mg/dL AST (0-40) U/L ALT (0-41) U/L Alkaline Phosphata se (40-130) IU/L Ammonia (16-60) umol/L Troponin T Baselin e (0-15) ng/L Troponin T 120 Min [place] (0-15) ng/L Delta Troponin T (0-10) ABS# NT-Pro-B Natriuret Pep (0-125) pg/mL Total Protein (6.6-8.7) g/dL Albumin (3.5-5.2) g/dL Globulin (1.3-4.6) g/dL Prolactin (4.0-15.2) ng/mL Urine Color (Yellow) Urine Appearance (CLEAR) Urine pH (5-7) Ur Specific Gravit y (1.005-1.030) Urine Protein (Negative) Urine Glucose (UA) (Normal) Urine Ketones (Negative) Urine Blood (Negative) Urine Nitrate (Negative) Urine Bilirubin (Negative) Urine Urobilinogen (Negative) mg/dL Ur Leukocyte Alissa ase (Negative) Influenza Type A A g (Negative) Influenza Type B A g (Negative) SARS-CoV-2 Ag (Rap id) (Negative) 07/25/20 07/25/20 07/25/20 Range/Units 20:45 20:45 20:45 WBC (4.0-10.0) 10^3/ uL RBC (4.1-5.3) 10^6/u L Hgb (11.7-16.6) g/dL Hct (42.0-52.0) % MCV (80-94) fL MCH (28.0-34.0) pg MCHC (30.0-36.0) g/dL RDW (12.1-15.1) % Plt Count (130-400) 10^3/c mm MPV (7.4-10.4) fL Neut % (Auto) % Lymph % (Auto) % [place] % (Auto) % Eos % (Auto) % Baso % (Auto) % Neut # (Auto) (1.8-7.7) 10^3/u L Lymph # (Auto) (0.8-4.8) 10^3/u L [place] # (Auto) (0.2-0.9) 10^3/u L Eos # (Auto) (0.0-0.8) 10^3/u L Baso # (Auto) (0.0-0.1) 10^3/u L Nucleated RBC % (a uto) % Nucleated RBCs # /100WBC PT (12.1-14.9) SECO NDS INR (0.8-1.2) D-Dimer (0-0.59) ug/mIFE U Specimen Type Sample Site ABG pH (7.35-7.45) ABG pCO2 (35-45) mmHg ABG pO2 (80.0-100.0) mmH g ABG HCO3 (22-26) mmol/L ABG Base Excess (-2.0-2.0) mmol/ L José Luis Test Hematocrit (42-52) % O2 Delivery Device O2 Liters/Min % FiO2 % Space Systems Operations Superintendent ID Sodium 132 L (136-145) mmol/L Potassium 3.5 (3.5-5.1) mmol/L Chloride 95 L (98-107) mmol/L Carbon Dioxide 23 (22-29) mmol/L Anion Gap 17.5 (5-19) BUN 32 H (8-23) mg/dL Creatinine 1.0 (0.7-1.2) mg/dL GFR Calculation Not Reportable Glucose 139 H (65-115) mg/dL Calculated Osmolal ity 283 L (285-295) mOsm/k g Lactic Acid 2.1 (0.5-2.2) mmol/L Lactic Acid (Sepsi s) (0.5-2.2) mmol/L Calcium 8.4 L (8.5-10.5) mg/dL Total Bilirubin 1.8 H (0.15-1.2) mg/dL AST 27 (0-40) U/L ALT 25 (0-41) U/L Alkaline Phosphata se 78 (40-130) IU/L Ammonia (16-60) umol/L Troponin T Baselin e 83 H (0-15) ng/L Troponin T 120 Min [place] (0-15) ng/L Delta Troponin T (0-10) ABS# NT-Pro-B Natriuret Pep 31292 H (0-125) pg/mL Total Protein 6.5 L (6.6-8.7) g/dL Albumin 4.0 (3.5-5.2) g/dL Globulin 2.5 (1.3-4.6) g/dL Prolactin (4.0-15.2) ng/mL Urine Color (Yellow) Urine Appearance (CLEAR) Urine pH (5-7) Ur Specific Gravit y (1.005-1.030) Urine Protein (Negative) Urine Glucose (UA) (Normal) Urine Ketones (Negative) Urine Blood (Negative) Urine Nitrate (Negative) Urine Bilirubin (Negative) Urine Urobilinogen (Negative) mg/dL Ur Leukocyte Alissa ase (Negative) Influenza Type A A g (Negative) Influenza Type B A g (Negative) SARS-CoV-2 Ag (Rap id) (Negative) 07/25/20 07/25/20 07/25/20 Range/Units 21:26 21:26 21:35 WBC (4.0-10.0) 10^3/ uL RBC (4.1-5.3) 10^6/u L Hgb (11.7-16.6) g/dL Hct (42.0-52.0) % MCV (80-94) fL MCH (28.0-34.0) pg MCHC (30.0-36.0) g/dL RDW (12.1-15.1) % Plt Count (130-400) 10^3/c mm MPV (7.4-10.4) fL Neut % (Auto) % Lymph % (Auto) % [place] % (Auto) % Eos % (Auto) % Baso % (Auto) % Neut # (Auto) (1.8-7.7) 10^3/u L Lymph # (Auto) (0.8-4.8) 10^3/u L [place] # (Auto) (0.2-0.9) 10^3/u L Eos # (Auto) (0.0-0.8) 10^3/u L Baso # (Auto) (0.0-0.1) 10^3/u L Nucleated RBC % (a uto) % Nucleated RBCs # /100WBC PT (12.1-14.9) SECO NDS INR (0.8-1.2) D-Dimer (0-0.59) ug/mIFE U Specimen Type Arterial Sample Site Radial, left ABG pH 7.48 H (7.35-7.45) ABG pCO2 36.0 (35-45) mmHg ABG pO2 60.0 L (80.0-100.0) mmH g ABG HCO3 26.8 H (22-26) mmol/L ABG Base Excess 3.5 H (-2.0-2.0) mmol/ L José Luis Test Pos Hematocrit 49.1 (42-52) % O2 Delivery Device Room air O2 Liters/Min % FiO2 % [employer] Operations Superintendent ID ellpe Sodium (136-145) mmol/L Potassium (3.5-5.1) mmol/L Chloride (98-107) mmol/L Carbon Dioxide (22-29) mmol/L Anion Gap (5-19) BUN (8-23) mg/dL Creatinine (0.7-1.2) mg/dL GFR Calculation Glucose (65-115) mg/dL Calculated Osmolal ity (285-295) mOsm/k g Lactic Acid (0.5-2.2) mmol/L Lactic Acid (Sepsi s) (0.5-2.2) mmol/L Calcium (8.5-10.5) mg/dL Total Bilirubin (0.15-1.2) mg/dL AST (0-40) U/L ALT (0-41) U/L Alkaline Phosphata se (40-130) IU/L Ammonia (16-60) umol/L Troponin T Baselin e (0-15) ng/L Troponin T 120 Min [place] (0-15) ng/L Delta Troponin T (0-10) ABS# NT-Pro-B Natriuret Pep (0-125) pg/mL Total Protein (6.6-8.7) g/dL Albumin (3.5-5.2) g/dL Globulin (1.3-4.6) g/dL Prolactin (4.0-15.2) ng/mL Urine Color (Yellow) Urine Appearance (CLEAR) Urine pH (5-7) Ur Specific Gravit y (1.005-1.030) Urine Protein (Negative) Urine Glucose (UA) (Normal) Urine Ketones (Negative) Urine Blood (Negative) Urine Nitrate (Negative) Urine Bilirubin (Negative) Urine Urobilinogen (Negative) mg/dL Ur Leukocyte Alissa ase (Negative) Influenza Type A A g Negative (Negative) Influenza Type B A g Negative (Negative) SARS-CoV-2 Ag (Rap id) Negative (Negative) 07/25/20 07/26/20 07/26/20 Range/Units 22:50 02:27 02:27 WBC (4.0-10.0) 10^3/ uL RBC (4.1-5.3) 10^6/u L Hgb (11.7-16.6) g/dL Hct (42.0-52.0) % MCV (80-94) fL MCH (28.0-34.0) pg MCHC (30.0-36.0) g/dL RDW (12.1-15.1) % Plt Count (130-400) 10^3/c mm MPV (7.4-10.4) fL Neut % (Auto) % Lymph % (Auto) % [place] % (Auto) % Eos % (Auto) % Baso % (Auto) % Neut # (Auto) (1.8-7.7) 10^3/u L Lymph # (Auto) (0.8-4.8) 10^3/u L [place] # (Auto) (0.2-0.9) 10^3/u L Eos # (Auto) (0.0-0.8) 10^3/u L Baso # (Auto) (0.0-0.1) 10^3/u L Nucleated RBC % (a uto) % Nucleated RBCs # /100WBC PT (12.1-14.9) SECO NDS INR (0.8-1.2) D-Dimer (0-0.59) ug/mIFE U Specimen Type Sample Site ABG pH (7.35-7.45) ABG pCO2 (35-45) mmHg ABG pO2 (80.0-100.0) mmH g ABG HCO3 (22-26) mmol/L ABG Base Excess (-2.0-2.0) mmol/ L José Luis Test Hematocrit (42-52) % O2 Delivery Device O2 Liters/Min % FiO2 % [employer] Operations Superintendent ID Sodium (136-145) mmol/L Potassium (3.5-5.1) mmol/L Chloride (98-107) mmol/L Carbon Dioxide (22-29) mmol/L Anion Gap (5-19) BUN (8-23) mg/dL Creatinine (0.7-1.2) mg/dL GFR Calculation Glucose (65-115) mg/dL Calculated Osmolal ity (285-295) mOsm/k g Lactic Acid (0.5-2.2) mmol/L Lactic Acid (Sepsi s) (0.5-2.2) mmol/L Calcium (8.5-10.5) mg/dL Total Bilirubin (0.15-1.2) mg/dL AST (0-40) U/L ALT (0-41) U/L Alkaline Phosphata se (40-130) IU/L Ammonia 38 (16-60) umol/L Troponin T Baselin e (0-15) ng/L Troponin T 120 Min [place] 78.98 H (0-15) ng/L Delta Troponin T -4.02 L (0-10) ABS# NT-Pro-B Natriuret Pep (0-125) pg/mL Total Protein (6.6-8.7) g/dL Albumin (3.5-5.2) g/dL Globulin (1.3-4.6) g/dL Prolactin 16.89 H (4.0-15.2) ng/mL Urine Color (Yellow) Urine Appearance (CLEAR) Urine pH (5-7) Ur Specific Gravit y (1.005-1.030) Urine Protein (Negative) Urine Glucose (UA) (Normal) Urine Ketones (Negative) Urine Blood (Negative) Urine Nitrate (Negative) Urine Bilirubin (Negative) Urine Urobilinogen (Negative) mg/dL Ur Leukocyte Alissa ase (Negative) Influenza Type A A g (Negative) Influenza Type B A g (Negative) SARS-CoV-2 Ag (Rap id) (Negative) 07/26/20 07/26/20 07/26/20 Range/Units 02:27 02:27 06:00 WBC (4.0-10.0) 10^3/ uL RBC (4.1-5.3) 10^6/u L Hgb (11.7-16.6) g/dL Hct (42.0-52.0) % MCV (80-94) fL MCH (28.0-34.0) pg MCHC (30.0-36.0) g/dL RDW (12.1-15.1) % Plt Count (130-400) 10^3/c mm MPV (7.4-10.4) fL Neut % (Auto) % Lymph % (Auto) % [place] % (Auto) % Eos % (Auto) % Baso % (Auto) % Neut # (Auto) (1.8-7.7) 10^3/u L Lymph # (Auto) (0.8-4.8) 10^3/u L [place] # (Auto) (0.2-0.9) 10^3/u L Eos # (Auto) (0.0-0.8) 10^3/u L Baso # (Auto) (0.0-0.1) 10^3/u L Nucleated RBC % (a uto) % Nucleated RBCs # /100WBC PT 21.20 H (12.1-14.9) SECO NDS INR 1.77 H (0.8-1.2) D-Dimer (0-0.59) ug/mIFE U Specimen Type Sample Site ABG pH (7.35-7.45) ABG pCO2 (35-45) mmHg ABG pO2 (80.0-100.0) mmH g ABG HCO3 (22-26) mmol/L ABG Base Excess (-2.0-2.0) mmol/ L José Luis Test Hematocrit (42-52) % O2 Delivery Device O2 Liters/Min % FiO2 % Space Systems Operations Superintendent ID Sodium 139 (136-145) mmol/L Potassium 3.6 (3.5-5.1) mmol/L Chloride 100 (98-107) mmol/L Carbon Dioxide 26 (22-29) mmol/L Anion Gap 16.6 (5-19) BUN 31 H (8-23) mg/dL Creatinine 0.8 (0.7-1.2) mg/dL GFR Calculation Not Reportable Glucose 110 (65-115) mg/dL Calculated Osmolal ity 295 (285-295) mOsm/k g Lactic Acid (0.5-2.2) mmol/L Lactic Acid (Sepsi s) (0.5-2.2) mmol/L Calcium 8.5 (8.5-10.5) mg/dL Total Bilirubin (0.15-1.2) mg/dL AST (0-40) U/L ALT (0-41) U/L Alkaline Phosphata se (40-130) IU/L Ammonia (16-60) umol/L Troponin T Baselin e (0-15) ng/L Troponin T 120 Min [place] (0-15) ng/L Delta Troponin T (0-10) ABS# NT-Pro-B Natriuret Pep (0-125) pg/mL Total Protein (6.6-8.7) g/dL Albumin (3.5-5.2) g/dL Globulin (1.3-4.6) g/dL Prolactin (4.0-15.2) ng/mL Urine Color Yellow (Yellow) Urine Appearance Clear (CLEAR) Urine pH 6.5 (5-7) Ur Specific Gravit y 1.010 (1.005-1.030) Urine Protein Neg (Negative) Urine Glucose (UA) Norm (Normal) Urine Ketones Negative (Negative) Urine Blood Neg (Negative) Urine Nitrate Negative (Negative) Urine Bilirubin Neg (Negative) Urine Urobilinogen Norm (Negative) mg/dL Ur Leukocyte Alissa ase Negative (Negative) Influenza Type A A g (Negative) Influenza Type B A g (Negative) SARS-CoV-2 Ag (Rap id) (Negative) 07/26/20 Range/Units 08:55 WBC (4.0-10.0) 10^3/ uL RBC (4.1-5.3) 10^6/u L Hgb (11.7-16.6) g/dL Hct (42.0-52.0) % MCV (80-94) fL MCH (28.0-34.0) pg MCHC (30.0-36.0) g/dL RDW (12.1-15.1) % Plt Count (130-400) 10^3/c mm MPV (7.4-10.4) fL Neut % (Auto) % Lymph % (Auto) % [place] % (Auto) % Eos % (Auto) % Baso % (Auto) % Neut # (Auto) (1.8-7.7) 10^3/u L Lymph # (Auto) (0.8-4.8) 10^3/u L [place] # (Auto) (0.2-0.9) 10^3/u L Eos # (Auto) (0.0-0.8) 10^3/u L Baso # (Auto) (0.0-0.1) 10^3/u L Nucleated RBC % (a uto) % Nucleated RBCs # /100WBC PT (12.1-14.9) SECO NDS INR (0.8-1.2) D-Dimer (0-0.59) ug/mIFE U Specimen Type Arterial Sample Site Radial, right ABG pH 7.47 H (7.35-7.45) ABG pCO2 41.7 (35-45) mmHg ABG pO2 89.9 (80.0-100.0) mmH g ABG HCO3 30.4 H (22-26) mmol/L ABG Base Excess 6.1 H (-2.0-2.0) mmol/ L José Luis Test Pos Hematocrit 47.5 (42-52) % O2 Delivery Device Nc O2 Liters/Min 3.0 % FiO2 32.0 % Space Systems Operations Superintendent ID Ed Sodium (136-145) mmol/L Potassium (3.5-5.1) mmol/L Chloride (98-107) mmol/L Carbon Dioxide (22-29) mmol/L Anion Gap (5-19) BUN (8-23) mg/dL Creatinine (0.7-1.2) mg/dL GFR Calculation Glucose (65-115) mg/dL Calculated Osmolal ity (285-295) mOsm/k g Lactic Acid (0.5-2.2) mmol/L Lactic Acid (Sepsi s) (0.5-2.2) mmol/L Calcium (8.5-10.5) mg/dL Total Bilirubin (0.15-1.2) mg/dL AST (0-40) U/L ALT (0-41) U/L Alkaline Phosphata se (40-130) IU/L Ammonia (16-60) umol/L Troponin T Baselin e (0-15) ng/L Troponin T 120 Min [place] (0-15) ng/L Delta Troponin T (0-10) ABS# NT-Pro-B Natriuret Pep (0-125) pg/mL Total Protein (6.6-8.7) g/dL Albumin (3.5-5.2) g/dL Globulin (1.3-4.6) g/dL Prolactin (4.0-15.2) ng/mL Urine Color (Yellow) Urine Appearance (CLEAR) Urine pH (5-7) Ur Specific Gravit y (1.005-1.030) Urine Protein (Negative) Urine Glucose (UA) (Normal) Urine Ketones (Negative) Urine Blood (Negative) Urine Nitrate (Negative) Urine Bilirubin (Negative) Urine Urobilinogen (Negative) mg/dL Ur Leukocyte Alissa ase (Negative) Influenza Type A A g (Negative) Influenza Type B A g (Negative) SARS-CoV-2 Ag (Rap id) (Negative) Imaging Data^: CT Head: Attestation: I personally reviewed and interpreted this imaging study as follows: Radiologist's impression: [address] [address] [address] Scan Report Signed Patient: Grabiel Ferrara #: [id number] : 9Acct#:[id number] Age/Sex: 69 / MADM Date: 07/25/20 Loc: [facility]/Bed: [facility] Attending Dr: Daphnie Palacios MD Ordering Provider/Ordering MD: Sharmila Pitts MD, [facility] Date of Service: 07/26/20 Procedure(s): CT head wo con* [id number] Accession Number(s): [id number] Report Number: [id number] PROCEDURE INFORMATION: Exam: CT Head Without Contrast Exam date and time: 07/26/2020 12:40 AM Age: 69 years old Clinical indication: Altered mental status/memory loss; Additional info: AMS TECHNIQUE: Imaging protocol: Computed tomography of the head without contrast. Radiation optimization: All CT scans at this facility use at least one of these dose optimization techniques: automated exposure control; mA and/or kV adjustment per patient size (includes targeted exams where dose is matched to clinical indication); or iterative reconstruction. COMPARISON: CT head wo con* [id number] 07/08/2020 6:48 PM RADIATION DOSE METRICS: Total DLP (mGy-cm): 2060.99 FINDINGS: Brain: There is mild parenchymal atrophy and chronic small vessel disease. Stable left parietal lobe and left insular cortex encephalomalacia. No acute infarct or hemorrhage. Cerebral ventricles: No ventriculomegaly. Bones/joints: Unremarkable. No acute fracture. Paranasal sinuses: Paranasal sinuses are clear. No air-fluid level. Mastoid air cells: Visualized mastoid air cells are clear. Soft tissues: Unremarkable. CT/CT head wo con* [id number] IMPRESSION: 1. No acute infarct or hemorrhage. 2. Mild parenchymal atrophy and chronic small vessel disease. 3. 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 Radiation Dose CTDIVOL = (mGy): DLP = 2060.99 (mGy-cm) Dictated By:Gregorio Loza Signed By:Ignacia Loza Date/Time:07/26/20233 DD/ 2 EKG Data^: EKG 1: Attestation: I personally reviewed and interpreted this EKG as follows: EKG Interpretation Date: 07/25/20 EKG interpretation time: 20:55 Prior EKG tracings: not available for review Interpretation: Sinus rhythm with frequent PVCs. Heart rate [address] changes. EKG 2: Attestation: I personally reviewed and interpreted this EKG as follows: EKG Interpretation Date: 07/25/20 EKG interpretation time: 22:40 Prior EKG tracings: available for review Interpretation: Sinus rhythm with occasional PVCs. Heart rate [address] changes. No significant change from earlier. 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
[2020-07-26] MEDS: OLANZapine 10 mg VIAL 5 MG IM (01:10)
--- NOTE | 2020-07-26 01:58 | XRR_ITS ---
PROCEDURE INFORMATION: Exam: XR Chest Exam date and time: 07/26/2020 2:36 AM Age: 69 years old Clinical indication: Shortness of breath; Additional info: Acute hypoxia TECHNIQUE: Imaging protocol: XR of the chest. Views: 1 view. COMPARISON: CR XR chest 1V portable [id number] 07/08/2020 6:17 PM FINDINGS: Lungs: There is mild cardiomegaly with increase in pulmonary vascularity and interstitial markings. Pleural spaces: Unremarkable. No pleural effusion. No pneumothorax. Heart/Mediastinum: Unremarkable. No cardiomegaly. Bones/joints: There has been a median sternotomy. XR/XR chest 1V [id number] IMPRESSION: Congestive heart failure.
--- NOTE | 2020-07-26 02:38 | ECG_ITS ---
[facility] Test Date: 2020-07-26 Pat Name: Grabiel Ferrara Department: Room: 112 Gender: Male Bilingual Case Manager: : [id number] Requested By: Sharmila Pitts I Order Number: [id number] Dari MD: Samir Quinn M.D. Measurements Intervals [place] Rate: 75 P: 77 MA: 176 QRS: 45 QRSD: 128 T: 209 QT: 474 QTc: 532 Interpretive Statements SINUS RHYTHM WITH OCCASIONAL VENTRICULAR PREMATURE COMPLEXES LEFT VENTRICULAR HYPERTROPHY AND ST-T CHANGE [VOLTAGE CRITERIA PLUS ST/T ABNORMALITY] Compared to ECG 07/25/2020 22:40:25 Myocardial infarct finding no longer present ST (T wave) deviation still present Electronically Signed On 07-26-2020 15:36:08 CDT by Samir Quinn M.D. [id number]
[2020-07-26] MEDS: bumetanide 0.25 mg/mL SDV 10 mL 1 MG IV (03:00)
[2020-07-26 03:17] LABS: INR 1.77 (0.8-1.2)
[2020-07-26 03:25] LABS: Blood Urea Nitrogen 31 mg/dL (8-23); Calcium 8.5 mg/dL (8.5-10.5); Carbon Dioxide 26 mmol/L (22-29); Chloride 100 mmol/L (98-107); Glucose 110 mg/dL (65-115); Osmolality Calculated 295 mOsm/kg (285-295); Sodium 139 mmol/L (136-145)
[2020-07-26 03:26] LABS: Ammonia 38 umol/L (16-60)
[2020-07-26 03:26] LABS: Lactic Acid level (Lactate) 1.4 mmol/L (0.5-2.2)
[2020-07-26 03:44] LABS: Anion Gap 16.6 (5-19); Potassium 3.6 mmol/L (3.5-5.1)
[2020-07-26 04:00] LABS: Prolactin 16.89 ng/mL (4.0-15.2)
[2020-07-26 06:21] LABS: Add Urine Microscopic? NO; Charge for UA Resulting for Rev
[2020-07-26 06:31] LABS: Urine Appearance Clear (CLEAR); Urine Color Yellow (Yellow); pH Urine 6.5 (5-7)
[2020-07-26 06:32] LABS: Bilirubin Urine Neg (Negative); Blood Urine Neg (Negative); Glucose Urine UA Norm (Normal); Ketones Urine Negative (Negative); Leukocyte Esterase Urine Negative (Negative); Nitrate Urine Negative (Negative); Protein Urine Neg (Negative); Urobilinogen Urine Norm (Negative)
--- NOTE | 2020-07-26 08:19 | USR_ITS ---
PROCEDURE INFORMATION: Exam: US Duplex Bilateral Extracranial Arteries Exam date and time: 07/26/2020 12:32 PM Age: 69 years old Clinical indication: Altered mental status/memory loss. TECHNIQUE: Imaging protocol: Real-time Duplex ultrasound scan of the bilateral carotid and vertebral arteries combining burnette scale, color Doppler and spectral waveform analysis. Bilateral exam. COMPARISON: CT head wo con* [id number] 07/26/2020 1:59 AM FINDINGS: There is wetv-ao-nertcrxr heterogeneous atherosclerotic plaque within the common carotid and internal carotid arteries. RIGHT: The peak systolic velocity within the proximal common carotid artery is 55 cm/s. The peak systolic velocity within the mid common carotid artery is 50 cm/s. The peak systolic velocity within the distal common carotid artery is 51 cm/s. The peak systolic velocity within the proximal internal carotid artery is 64 cm/s. The peak systolic velocity within the mid internal carotid artery is 63 cm/s. The peak systolic velocity within the distal internal carotid artery is 46 cm/s. The peak systolic velocity within the vertebral artery is 29 cm/s. There is anterograde blood flow in the vertebral artery. LEFT: The peak systolic velocity within the proximal common carotid artery is 85 cm/s. The peak systolic velocity within the mid common carotid artery is 55 cm/s. The peak systolic velocity within the distal common carotid artery is 58 cm/s. The peak systolic velocity within the proximal internal carotid artery is 47 cm/s. The peak systolic velocity within the mid internal carotid artery is 52 cm/s. The peak systolic velocity within the distal internal carotid artery is 49 cm/s. The peak systolic velocity within the vertebral artery is 29 cm/s. There is anterograde blood flow in the vertebral artery. US/CV carotid duplex BI* [id number] IMPRESSION: 1. No hemodynamically significant stenosis is identified. 2. There is rawx-li-btxmptwm heterogeneous atherosclerotic plaque within the common carotid and internal carotid arteries. REFERENCES: SRU CRITERIA. The degree of internal carotid artery stenosis is based on criteria defined by the Society of Radiologists in Ultrasound (SRU). Normal is no stenosis. Mild is less than 50% stenosis. Moderate is 50-69% stenosis. Severe is greater than 69% stenosis to near occlusion. Near occlusion is a markedly narrowed lumen. Total occlusion is no detectable patent lumen.
--- NOTE | 2020-07-26 08:19 | USCV_ITS ---
Grabiel Ferrara Age: 69 Gender: M : 1950 Exam Date: 07/26/2020 13:13 Ordering Phys: Joel Rudolph MD Technologist: Lucrecia Anaya [place] [facility] [place]: Shortness of breath BP: 107 / 65 HR: 74 Rhythm: Sinus Technical Quality: Adequate MEASUREMENTS (Male / Female) Normal Values 2D ECHO LV Diastolic Diameter PLAX 7.1 cm 4.2 - 5.9 / 3.9 - 5.3 cm LV Systolic Diameter PLAX 6.8 cm LV Chamber Size 7.2 cm IVS Diastolic Thickness 1.1 cm 0.6 - 1.0 / 0.6 - 0.9 cm IVS Systolic Thickness 0.9 cm LVPW Diastolic Thickness 1.1 cm 0.6 - 1.0 / 0.6 - 0.9 cm LVPW Systolic Thickness 1.1 cm RV Chamber Size 4.5 cm LVOT Diameter 2.2 cm LV Ejection Fraction 2D Teich 9.3 % LV Ejection Fraction MOD 2C 28.4 % LV Ejection Fraction 2C AL 28.4 % LA Diameter 4.8 cm LA Width 4.0 cm LA Height 6.3 cm RA Width 3.6 cm RA Height 6.0 cm Aorta at Sinotubular Diameter 3.3 cm M-MODE LV Diastolic Diameter MM 8.5 cm 4.2 - 5.9 / 3.9 - 5.3 cm LV Systolic Diameter MM 7.8 cm LV Ejection Fraction MM Teich 17.7 % IVS Diastolic Thickness MM 1.0 cm 0.6 - 1.0 / 0.6 - 0.9 cm IVS Systolic Thickness MM 1.2 cm LVPW Diastolic Thickness MM 1.3 cm 0.6 - 1.0 / 0.6 - 0.9 cm LVPW Systolic Thickness MM 1.6 cm RV Diastolic Diameter MM 1.5 cm Aortic Annulus Diameter 3.8 cm LA Ao Ratio MM 1.5 MV E Point Septal Separation 2.8 cm DOPPLER AV Peak Velocity 101.0 cm/s LVOT Peak Velocity 68.0 cm/s AV Area Cont Eq vti 2.0 cm squared AV Area Cont Eq pk 2.5 cm squared MV Area PHT 5.5 cm squared MV E' Velocity 89.0 cm/s TR Peak Velocity 299.8 cm/s TR Peak Gradient 36.0 mmHg TR Mean Velocity 229.9 cm/s TR Mean Gradient 23.8 mmHg TR Velocity Time Integral 110.1 cm TV Peak E Velocity 26.0 cm/s Right Atrial Pressure 15.0 mmHg Pulmonary Artery Systolic Pressu 51.0 mmHg PV Peak Velocity 41.0 cm/s RV Acceleration Time 0.1 s RV Ejection Time 0.2 s RV AcT/ET 0.3 FINDINGS Left Ventricle Left ventricle is severely dilated. LV systolic function is severely reduced with EF of 10-15%. Severe global hypokinesis is seen. Diastolic function is abnormal. Right Ventricle The right ventricle is normal in size and function. Right Atrium The right atrium is dilated. RA pressure is elevated and is 15mmHg Left Atrium The left atrium is enlarged Mitral Valve Structurally normal mitral valve without significant stenosis or prolapse. There is moderate mitral regurgitation. Aortic Valve Aortic valve is thickened without significant sclerosis or stenosis. There is moderate aortic regurgitation. Tricuspid Valve Structurally normal tricuspid valve without significant stenosis. Moderate tricuspid regurgitation. RVSP is 50-55mmHg. Moderate pulmonary hypertension Pulmonic Valve Structurally normal pulmonic valve without significant stenosis. There is trace pulmonic regurgitation. Pericardium Normal pericardium without effusion. Aorta Normal ascending aorta dimension. CONCLUSIONS LV is severely dilated LV systolic function is severely reduced with EF of 10 to 15%. Severe global hypokinesis is seen. Diastolic function is abnormal. Biatrial enlargement. RA pressure is elevated. Moderate mitral regurgitation is seen. Moderate aortic regurgitation and moderate tricuspid regurgitation seen. Moderate pulmonary hypertension is noted. Trace pulmonic regurgitation is present. Compared to prior echocardiogram from 04/22/2016, LV systolic function has slightly decreased further with worsening of the valvular heart disease to moderate degree Samir Quinn MD (Electronically Signed) Final Date: 26 July 2020 16:34 S
[2020-07-26] MEDS: ipratropium-albuterol 3 mL Neb INHALATION ×3 (09:05→20:35)
[2020-07-26 09:07] LABS: ABG PCO2 41.7 mmHg (35-45); ABG PH Result 7.47 (7.35-7.45); Arterial Blood Gas Hematocrit 47.5 % (42-52); Base Excess ABG 6.1 mmol/L (-2.0-2.0); Blood Gas Allen Test Pos; Blood Gas Operator Identificat ED; Blood Gas Sample Site Radial, right; Blood Gas Sample Type Arterial; HCO3 ABG 30.4 mmol/L (22-26); Oxygen Device NC; PO2 ABG 89.9 mmHg (80.0-100.0)
[2020-07-26] MEDS: aspirin 81 mg EC Tablet PO (10:02)
[2020-07-26] MEDS: atorvastatin 40 mg Tablet 20 MG PO (10:02)
[2020-07-26] MEDS: potassium chloride ER 20 mEq Tablet 40 MEQ PO (10:02)
[2020-07-26] MEDS: bumetanide 0.25 mg/mL SDV 4 mL 1 MG IV ×2 (10:03→21:54)
--- NOTE | 2020-07-26 11:50 | P.PN_ITS ---
Subjective Subjective: Interval history: This morning patient was examined, he is laying in bed, leaning to the side, he responds to his name, he does not know where he is, he does not know the time, he does not know what is bothering him, but he does follow commands such as squeezing my fingers, wiggling his toes, lifting his legs, no evidence of respiratory distress, no retractions, no nasal flaring, not actively wheezing, he has no complaints of chest pain Vitals/I&O/Wt Last Vital Signs Temp 97.5 F L 07/26/20 08:00 Pulse 77 07/26/20 09:11 Resp 26 H 07/26/20 09:07 BP 94/56 07/26/20 08:00 Pulse Ox 97 07/26/20 09:07 07/25/20 07/26/20 07/26/20 22:59 06:59 14:59 Output Total 0 / 0 300 / 300 Balance 0 / 0 -300 / -300 Weight last 48 hrs Weight 104.326 kg Physical Exam Const: COMMON NORMALS: no acute distress and patient oriented x3 HENMT: COMMON NORMALS: normocephalic HEAD & SCALP: normocephalic Neck/C-Spine: COMMON NORMALS: no JVD Resp: COMMON NORMALS: normal respiratory effort, No retractions and No use of accessory muscles AUSCULTATION: crackles Cardio: COMMON NORMALS: no JVD, regular rate, regular rhythm, S1 normal heart sound present and S2 normal heart sound present RATE: regular rate RHYTHM: regular rhythm HEART SOUNDS: S1 normal heart sound present and S2 normal heart sound present GI: COMMON NORMALS: Normal to inspection, nondistended, normoactive bowel sounds present, Soft to palpation, non-tender, No hepatosplenomegaly present, no masses and no bruits PALPATION: Yes Soft to palpation and Yes No hepatosplenomegaly present Extremity: NARRATIVE EXTREMITY EXAM: 1+ pitting edema Neuro: COMMON NORMALS: patient oriented x3 Psych: COMMON NORMALS: mental status grossly normal Data : 07/25/20 20:45 07/26/20 02:27 A&P Assessment and plan (1) CHF exacerbation: Status: Acute (2) Acute hyperactive delirium due to another medical condition: Status: Acute (3) Peripheral Vascular Disease: Status: Acute (4) Shortness of breath: Status: Acute (5) Acute respiratory failure with hypoxia: Status: Acute (6) COPD exacerbation: Status: Acute (7) Personality change: Status: Acute (8) Altered mental status: Status: Acute Additional A&P Information Acute CHF exacerbation Clinically looks fluid overloaded worsening BNP, previous echo reveals ejection fraction of 20% which was done in 2017 EKG is not showing any ischemic or infarctive changes no ACS syndrome I do believe his symptoms are secondary to worsening of underlying CHF due to active smoking and noncompliance Bumex 1 mg every 12 hours Monitor urine output, fluid restrictions 1500 cc Cardiac echocardiogram ordered Acute hypoxia with COPD exacerbation Currently requiring 2 L nasal cannula, [id number] smoking history, D-dimer unremarkable ABG revealed relative hypoxia on room air with a respiratory alkalosis, chest x- ray does not show focal pneumonia Switch to BiPAP overnight, patient's does endorse sleep apnea at home she counted up to 20 seconds, he has been experiencing visual hallucination, personality change and very dangerous driving habits, is endorsing that he falls asleep while driving I recommended his that he should not drive at all and if he does not quit driving should be reported to the police department as she is putting others at risk of injury Does follow-up with Dr. 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 fib/ischemic event, recurrent CVA not ruled out For agitation I will use Ativan & avoid antipsychotics because of QT prolongation 496 on EKG, as per the patient did not do well with Seroquel, we will keep him on one-to-one supervision because of his aggressive behavior with the medical staff Order EEG to evaluate for possible seizures, although not observed Cardiac echocardiogram ordered, carotid artery ultrasound ordered If patient can tolerate it, will order brain MRI tomorrow to evaluate for Lewy body dementia, frontotemporal infarcts A. fib without acute RVR: Continue Coumadin his INR is 1.8, pharmacy to dose Rate controlled without use of any AV stewart blocking agent Goals of care discussed with the : is stating that he expresses wishes to the family that he does not want any kind resuscitation with chest compr essions, he will stay DNR/DNI N.p.o. except medications, advance diet once he is more awake and alert DVT prophylaxis not indicated due to Coumadin use Attestations Medical Necessity Statement*: Patient requires hospitalization, inpatient, greater than 2 midnights, for acute CHF exacerbation, acute hypoxic respiratory failure, altered mental status, Coding Level of Care Code Acute Payroll Manager for Ilene Fwcarolin Diagnoses CHF exacerbation I50.9 Acute hyperactive delirium due to another medical condition F05 Peripheral Vascular Disease I73.9 Shortness of breath R06.02 Acute respiratory failure with hypoxia J96.01 COPD exacerbation J44.1 Personality change F68.8 Altered mental status R41.82
--- NOTE | 2020-07-26 13:00 | PC.NURSE ---
Pt calm and cooperative. Removed 1 on 1 sitter. Will continue to monitor.
[2020-07-26] MEDS: warfarin 4 mg Tablet 8 MG PO (14:22)
[2020-07-26] MEDS: LORazepam 2 mg/mL INJ 1 mL 1 MG IM (19:12)
--- NOTE | 2020-07-26 19:25 | PC.NURSE ---
Patient became confused, pulled out IV, removed telemetry wires and gown. Maintainer Central Office was at bedside attempting to reorient patient. Patient became agitated and grabbed typewriter tester's wrist and stated, I do know where I'm at and I know where Ill shove it if you don't leave me alone. Security called to bedside. Dr. Rudolph notified of behaviors and lack of IV for prn order. Telephone order received to administer Ativan 1 mg IM now. If patient behavior does not improve in 15 minutes, administer Haldol 2 mg IM. Order implemented. Primary nurse to continue to monitor.
[2020-07-27] VITALS (17 sets, daily range): BP systolic 102–132; BP diastolic 47–86; PULSE 74–111; RESP 13–38; TEMP 36.1–36.8; O2SAT 91–99
[2020-07-27] MEDS: LORazepam 2 mg/mL INJ 1 mL 1 MG IVP (01:20)
[2020-07-27] MEDS: ipratropium-albuterol 3 mL Neb INHALATION ×4 (01:59→20:13)
--- NOTE | 2020-07-27 05:38 | PC.NURSE ---
Pt confused all of shift, restless at times. Pulled out IV, pulling off telemetry and oxygen. Attempting to get OOB. Sitter at bedside.
[2020-07-27 06:07] LABS: Basophils # 0.1 10^3/uL (0.0-0.1); Basophils % 1.1 %; Eosinophils # 0.1 10^3/uL (0.0-0.8); Eosinophils % 1.5 %; Hematocrit 48.2 % (42.0-52.0); Hemoglobin 15.2 g/dL (11.7-16.6); Lymphocytes # 1.4 10^3/uL (0.8-4.8); Lymphocytes % 23.4 %; Mean Corpuscular HGB Conc 31.5 g/dL (30.0-36.0); Mean Corpuscular Hemoglobin 32.9 pg (28.0-34.0); Mean Corpuscular Volume 104.3 fL (80-94); Mean Platelet Volume 11.1 fL (7.4-10.4); Monocytes # 0.7 10^3/uL (0.2-0.9); Monocytes % 11.1 %; Neutrophils # 3.86 10^3/uL (1.8-7.7); Neutrophils % 62.7 %; Nucleated Red Blood Cells % 0 %; Platelet Count 146 10^3/cmm (130-400); Red Blood Count 4.62 10^6/uL (4.1-5.3); Red Cell Distribution Width 14.3 % (12.1-15.1); White Blood Count 6.2 10^3/uL (4.0-10.0)
[2020-07-27 06:25] LABS: INR 1.63 (0.8-1.2)
[2020-07-27 06:35] LABS: NT Pro B Type Natriuretic Pept 10368 pg/mL (0-125); Procalcitonin 0.09 ng/mL (0-0.5)
[2020-07-27 06:47] LABS: Alanine Aminotransferase 18 U/L (0-41); Albumin Level 3.4 g/dL (3.5-5.2); Alkaline Phosphatase 60 IU/L (40-130); Anion Gap 15.5 (5-19); Aspartate Amino Transferase 17 U/L (0-40); Blood Urea Nitrogen 30 mg/dL (8-23); C Reactive Protein 8.2 mg/L (0.0-4.9); Calcium 8.6 mg/dL (8.5-10.5); Carbon Dioxide 27 mmol/L (22-29); Chloride 104 mmol/L (98-107); Glucose 96 mg/dL (65-115); Magnesium 2.2 mg/dL (1.7-2.3); Osmolality Calculated 302 mOsm/kg (285-295); Phosphorus 3.2 mg/dL (2.5-4.5); Potassium 3.5 mmol/L (3.5-5.1); Sodium 143 mmol/L (136-145); Total Protein 6.4 g/dL (6.6-8.7)
[2020-07-27] MEDS: bumetanide 0.25 mg/mL SDV 4 mL 1 MG IV ×2 (08:27→20:16)
[2020-07-27 09:07] LABS: Lactate (Lactic Acid level) 1.5 mmol/L (0.5-2.2)
--- NOTE | 2020-07-27 12:43 | PC.NURSE ---
Patient was lethargic this morning after last night's ativan dose. Patient would arouse to name, but was unable to take his morning po medications. Patient is awake at this time, however patient is confused. Also, while discussing with the patient's , she revealed to the typewriter assembler that the patient becomes angry and confused every evening, but that she has never had him tested for dementia. Will continue to monitor patient.
[2020-07-27] MEDS: warfarin 4 mg Tablet 8 MG PO (14:51)
--- NOTE | 2020-07-27 15:26 | P.PN_ITS ---
Subjective Subjective: Interval history: For clarification reviewed events that have occurred at home. 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 I am not entirely sure what the interim care arrangements have been but approximately 4 weeks ago patient's [id number] came to visit. She went home and subsequently returned and for the last 3 weeks has noted progressive decline in Mr. Schuster's functionality. From what I can gather patient was near normal about 4 weeks ago and since that time is started urinating and defecating around the house, not acting right, becoming progressively more aggressive and angry towards his . Has not been able to drive or adequately care for himself. In talking with him he knows that he is not at home. He knows that the president is currently Jad. He knows his 's name and can tell me about when they got . She is not his first . He cannot tell me the year. He knows that he has not been acting right but he cannot give me the details. He also started going on about his needing to not pay attention to certain people. He talked about critters running around the house . He otherwise does not have any specific complaints currently. Vitals/I&O/Wt Last Vital Signs Temp 97.8 F 07/27/20 12:00 Pulse 83 07/27/20 14:34 Resp 28 H 07/27/20 14:34 BP 117/47 07/27/20 12:00 Pulse Ox 98 07/27/20 14:34 07/27/20 07/27/20 07/27/20 06:59 14:59 22:59 Intake Total 360 / 360 Output Total 1200 / 2250 500 / 500 Balance -1200 / -1770 -140 / -140 Weight last 48 hrs Weight 104.326 kg Physical Exam Narrative: EXAM NARRATIVE: Awake, oriented to person and place, to a lesser degree to situation. Looks disheveled. Some mild bitemporal wasting noted as well as some wasting of the thenar eminence bilaterally. Large of hyperpigmentation noted to scalp that is chronic in appearance. Extraocular movements are intact. Some mild conjunctival injection. Oropharynx with slightly dry mucous membranes. Neck is supple. Lungs are clear to auscultation bilaterally. Cardiovascular exam reveals regular rhythm, abdomen is soft, nontender, decreased but positive bowel sounds. Patient with abrasions to distal extremities. No pitting edema. Hand data processing operator is stronger on the right than the left. Face symmetric but he is not fully cooperative with direct commands. Speech is clear but at times tangential. He is aware of what sounds like both audio and visual hallucinations at times though denies them at the very moment and examining him. Data : 07/27/20 04:14 07/27/20 04:14 A&P Assessment and plan (1) Shortness of breath: Multifactorial related to noncompliance with medications, CHF and COPD. Status: Acute (2) CHF exacerbation: Echocardiogram shows severely reduced ejection fraction at 10 to 15% with severe global hypokinesis Status: Acute Qualifiers: Heart failure type: systolic Qualified Code(s): I50.23 - Acute on chronic systolic (congestive) heart failure (3) COPD exacerbation: Status: Acute (4) Altered mental status: Progressively worsening over the last 3 weeks. He is having both audio and visual hallucinations, significant behavior change with inappropriate behaviors such as defecating and urinating around the house, being more aggressive towards his . Symptoms do seem worse in the evening. He has no prior diagnosis of dementia but I think it certainly a possibility. Coinciding with onset of mental status changes is that patient's 's sister came to stay with him to care for Mr. Chatman's significant medical issues herself within the last 6 months. The ibrwnn-ui-htq had previously visited and described patient as being more normal. Status: Acute Qualifiers: Altered mental status type: delirium Qualified Code(s): R41.0 - Disorientation, unspecified (5) CAD (coronary artery disease): Status: Chronic Qualifiers: Coronary Disease-Associated Artery/Lesion type: [place] artery [place] vs. transplanted heart: [place] heart Associated angina: without angina Qualified Code(s): I25.10 - Atherosclerotic heart disease of [place] coronary artery without angina pectoris Additional A&P Information Continue diuretic therapy MRI and EEG have been requested but I am not sure that patient will tolerate procedure currently so I have held orders for such Repeat cardiac enzymes Continue diuretic therapy and close monitoring of volume status Continue inhalers as needed Continue Coumadin with monitoring of INR until appropriately therapeutic On aspirin and statin Has a sitter for safety due to intermittent aggression which I will continue presently Has as needed Ativan, trying to minimize antipsychotic agents secondary to QT prolongation noted on EKG Today I think some redirection might be useful at times including getting up out of the room, minimizing what we can that is different from what he is used to such as stopping continuous pulse ox. We will see how patient does once he is diuresed a bit more as well as pending follow-up of repeat troponins before considering additional imaging of the head and other studies BiPAP has been ordered due to reported sleep apnea Chronically on oxygen Check B12 and folate, TSH We will try to get some more details from family regarding baseline I do not recognize his primary care provider's name but it would also be nice to have some information from them if we can get it Looks like he smokes fairly regularly, will add nicotine patch in am with plan to remove at bedtime to see if helps his symptoms any Supportive care otherwise Coumadin provides appropriate DVT prophylaxis Supportive care otherwise Discussed with patient to the extent that he was able to follow We will discuss further with patient's and [id number] tomorrow May necessitate geriatric psychiatry evaluation Allow natural Attestations Medical Necessity Statement*: Requires ongoing inpatient stay for continued management both of acute on chronic CHF and COPD as well as for altered mental status associated with hallucinations and some behavioral disturbances. Plans are as noted. At high risk of harming himself or others without inpatient int ervention currently. Coding Level of Care Code Acute Children'S Entertainer for Ilene Pelayo Diagnoses Shortness of breath R06.02 CHF exacerbation I50.23 Heart failure type: systolic COPD exacerbation J44.1 Altered mental status R41.0 Altered mental status type: delirium CAD (coronary artery disease) I25.10 Coronary Disease-Associated Artery/Lesion type: [place] artery [place] vs. transplanted heart: [place] heart Associated angina: without angina
[2020-07-27] MEDS: LORazepam 2 mg/mL INJ 1 mL 0.5 MG IVP (18:06)
--- NOTE | 2020-07-27 18:27 | PC.NURSE ---
Patient became increasingly anxious after his 's departure this evening. He has also had a history of having these episodes in the evening since arrival and prior to according to his . Patient was upset that his was going to go home. He stated that he was going to also go home. Nurse reoriented patient to time and place and situation. Patient made a few different attempts to get out of bed despite redirection and was given 0.5mg prn ativan iv. Will continue to monitor patient and utilize 1:1 sitter.
--- NOTE | 2020-07-27 21:00 | PC.NURSE ---
pt is very agitated tonight. Trying to get out of bed, physically inappropriate with aid, and mildly aggressive when trying to provide patient care. It is very hard to reorient this patient as well. Ativan was given at 1800 with no improvement thus far. Phys notified.
[2020-07-27] MEDS: quetiapine 25 mg Tablet 50 MG PO (22:08)
[2020-07-28] VITALS (15 sets, daily range): BP systolic 94–124; BP diastolic 49–67; PULSE 75–95; RESP 15–31; TEMP 36.4–36.8; O2SAT 89–98
[2020-07-28] MEDS: ipratropium-albuterol 3 mL Neb INHALATION ×3 (03:17→20:32)
[2020-07-28 04:54] LABS: INR 1.89 (0.8-1.2)
[2020-07-28 05:07] LABS: Troponin T (5th) Once 77 ng/L (0-15)
[2020-07-28 05:21] LABS: Alanine Aminotransferase 15 U/L (0-41); Albumin Level 3.2 g/dL (3.5-5.2); Alkaline Phosphatase 57 IU/L (40-130); Anion Gap 12.4 (5-19); Aspartate Amino Transferase 18 U/L (0-40); Blood Urea Nitrogen 33 mg/dL (8-23); Calcium 8.3 mg/dL (8.5-10.5); Carbon Dioxide 28 mmol/L (22-29); Chloride 104 mmol/L (98-107); Globulin 2.6 g/dL (1.3-4.6); Glucose 97 mg/dL (65-115); Osmolality Calculated 299 mOsm/kg (285-295); Potassium 3.4 mmol/L (3.5-5.1); Sodium 141 mmol/L (136-145); Thyroid Stimulating Hormone 2.11 uIU/mL (0.27-4.20); Total Bilirubin 2.7 mg/dL (0.15-1.2); Total Protein 5.8 g/dL (6.6-8.7); Vitamin B12 473 pg/mL (232-1245)
[2020-07-28 05:22] LABS: Folate Level 11.9 ng/mL (4.5-32.2)
--- NOTE | 2020-07-28 08:03 | ECG_ITS ---
[facility] Test Date: 2020-07-28 Pat Name: Grabiel Ferrara Department: Room: 112 Gender: Male Penetration Tester: : 1950 Requested By: Alley Madison Order Number: [id number] Dari MD: Rissa Badillo M.D. Measurements Intervals [place] Rate: 83 P: 74 MS: 167 QRS: 53 QRSD: 125 T: 216 QT: 401 QTc: 472 Interpretive Statements SINUS RHYTHM WITH OCCASIONAL VENTRICULAR PREMATURE COMPLEXES LEFT VENTRICULAR HYPERTROPHY AND ST-T CHANGE [VOLTAGE CRITERIA PLUS ST/T ABNORMALITY] POSSIBLE INFERIOR MYOCARDIAL INFARCTION [30 ms Q WAVE IN II/aVF], OF INDETERMINATE AGE Compared to ECG 07/26/2020 04:12:47 Myocardial infarct finding now present ST (T wave) deviation still present Electronically Signed On 07-29-2020 7:42:42 CDT by Rissa Badillo M.D. [email or web address]
[2020-07-28] MEDS: bumetanide 0.25 mg/mL SDV 4 mL 1 MG IV (08:04)
--- NOTE | 2020-07-28 08:05 | PM.PN ---
Subjective Subjective: Interval history: Became anxious when left last evening, received Ativan Received Seroquel last evening closer to bedtime, discussed with night nurse and he was quite. He did eventually tire out. Blood pressure is a bit low this morning Remains off of home diuretic therapy in place of IV Bumex, negative fluid balance achieved yesterday This evening spoke with patient's as well as with his [id number]-ewq. The patient's had an intracerebral hemorrhage or aneurysm last February. She was hospitalized for an extended period of time. Patient and her have been for more than 20 years. This was a significant change for him to not have her around his she generally does things for him. He is capable of doing things on his own but she has always cared for him as 's often do from her generation. He was only able to visit her on limited occasions. She was hospitalized for quite some time and had some intracranial surgery or at least a shunt placement from what she describes. Within the same weekend that she came home from the hospital which was sometime within the last couple of months, they sold their house and bought a new house within a short period of time. There is been quite a people in their lives from this. They also lost a beloved dog. According to the uniwdj-mz-rau patient seemed to be acting normal previously but behavior over the last couple of months has been progressively worsening. Patient's states that he has frequently not been taking his medications. She had always set it out for him prior to her cute medical issue. Its not known how long he was not taking his medications. It sounds like he has been sundowning over time but both the mfokjt-fw-vuy and the patient's are fairly explicit that he had not demonstrated any evidence of sundowning or memory loss or declining cognitive function prior to this acute event back in February when she went to the hospital. They also indicate that he was of sound mind and able to make decisions about selling their old house and buying a new property. Interestingly they mention that sold the house to somebody that Dr. Rubin knows. Through this connection they were able to get an appointment with Dr. Rubin in August to address some of these symptoms that have been going on lately. In addition to what already mentioned, they struggled with food during the time that the snow was around. They also had no heat for a while so it has been quite a traumatic period of time. The first thing that the noted with him having the hallucinations gradually followed by progressively more bizarre behavior Primary care provider had started Seroquel. They took 1 dose of Seroquel at home and he was much worse. He has been borderline aggressive/combative with his a couple of times. Sounds like there have been challenges adjusting to the new house. He also takes a water pill twice a day at 8 AM and 8 PM. He gets up frequently to go to the bathroom at night. He has not been able to remember where the bathroom is in the new house and frequently will urinate on the floors where attempt to urinate in the trash can. He frequently has hallucinations but is aware that he is having hallucinations. describes him leaning over and biting his dog 1 day. He did not break skin but it was something very out of character for him. He almost fell down into the basement the other night not being able to find his way through different doors. The and the [id number] report that they have put night lights and other lights throughout the house and even gone so far as to do frequent walk-through's but he has not been able to retain this information. He has had some other erratic driving, falling asleep periodically. It is not known how long it has been since he has had a good night sleep. He does chronically sleep sitting up. He has done that since he had bypass surgery. Talking with the patient today, he does not remember the first few days of the hospital stay. Some of the things that he is talking about do not make sense to me but it seems to make sense in his head. He states that people were not telling him where he was and that somebody told him that where he was going he would not need his shoes. He appears highly intelligent and is quick to have an answer to almost anything that you point out he is done lately that may not be appropriate. At times during our discussion he became a bit tearful. Talk with him about the multiple losses that he has had and challenges. He got tearful one time and when specifically questioned about depression he did acknowledge that he was probably experiencing some. He was willing to consider initiation of an antidepressant. Care for him to be able to rest, take his medications the way he is supposed to like he used to be able to do into urinate in the right place and be nice. I reviewed with him some of the common things that we see that can cause symptoms such as they describe but that my overall view was that currently the repeated events over the last 6 months or so may have led to loss of some of his reserves and faculty to be able to deal with what is before him. While nobody had noticed any changes previously I wonder if he was not able to hide that well just with his wit. I also think not taking his medications regularly is certainly a contributing factor. Sleep apnea could account for some of his symptoms. I do not see evidence of an acute infection currently. He very well could be having recurrent transient ischemic attacks leading to some vascular changes chronically as well. I discussed that we very well may not be able to get him back to what she would like for him to be. Vitals/I&O/Wt Last Vital Signs Temp 97.5 F L 07/28/20 04:00 Pulse 78 07/28/20 06:00 Resp 22 H 07/28/20 04:00 BP 94/49 07/28/20 04:00 Pulse Ox 95 07/28/20 04:00 07/27/20 07/28/20 07/28/20 22:59 06:59 14:59 Intake Total 560 / 920 100 / 1020 Output Total 100 / 600 Balance 460 / 320 100 / 420 Physical Exam Narrative: EXAM NARRATIVE: Making more sense with most of his discussion today. Data : 07/27/20 04:14 07/28/20 04:14 Other Labs: Laboratory Tests 07/28/20 07/28/20 04:14 04:14 Vitamin B12 473 Folate 11.9 TSH 2.11 A&P Assessment and plan (1) Shortness of breath: Multifactorial related to noncompliance with medications, CHF and COPD. Status: Acute (2) CHF exacerbation: Echocardiogram shows severely reduced ejection fraction at 10 to 15% with severe global hypokinesis Status: Acute Qualifiers: Heart failure type: systolic Qualified Code(s): I50.23 - Acute on chronic systolic (congestive) heart failure (3) COPD exacerbation: Status: Acute (4) Altered mental status: Progressively worsening over the last 3 to 6 weeks. He has had sundowning, audio and visual hallucinations, significant behavior change at times with urinating in inappropriate places, biting the dog, aggressive behavior toward his of 20+ years. There are some extenuating circumstances such as moving, acute illness and his , loss of a dog among other items described. I suspect he probably has some underlying dementia, likely vascular. Status: Acute Qualifiers: Altered mental status type: delirium Qualified Code(s): R41.0 - Disorientation, unspecified (5) CAD (coronary artery disease): Status: Chronic Qualifiers: Coronary Disease-Associated Artery/Lesion type: [place] artery [place] vs. transplanted heart: [place] heart Associated angina: without angina Qualified Code(s): I25.10 - Atherosclerotic heart disease of [place] coronary artery without angina pectoris (6) Depression: Status: Acute Additional A&P Information Add temazepam at bedtime As that he is doing better this evening will stop sitter Monitor how he does with this Add Lexapro We will see if I can discuss with Dr. Rubin in the morning concerning any other suggestions. He received either Geodon or Zyprexa in the emergency room and was quite somnolent after this without significant acute improvement. Has had several doses of Seroquel. He does have QT prolongation and chronic cardiac issues. Ideally I would like to be able to get him back home with his but I am just not sure that working to get to that point currently. Continue inhalers as needed Continue Coumadin with monitoring of INR until appropriately therapeutic On aspirin and statin Continue efforts at redirecting him BiPAP has been ordered due to reported sleep apnea Chronically on oxygen Continue nicotine patch Supportive care otherwise Coumadin provides appropriate DVT prophylaxis Supportive care otherwise Spoke with patient's and jyiobc-sw-qmi for approximately 80 minutes ends in gathering more detailed history May necessitate geriatric psychiatry evaluation I have been told that he has been accepted at a skilled facility. I am not sure sure that his current goals of care. He certainly does not want to go to a skilled facility. This was evidently passed on at admission given the challenges with him recently. Allow natural Attestations Medical Necessity Statement*: Patient requires ongoing inpatient stay for continued management with diuresis and monitoring while we reinitiate his chronic medications. He has some chronic problems that have not been adequately managed as well as grabbed his an acute delirium. I am not convinced that he has not started to show evidence of some cognitive decline possibly potentiated by it being away from his , change of environment, lack of sleep from being worried about her and other issues. He appears to be somebody who could compensate well. Vascular etiology is certainly within the differential given that his INR was subtherapeutic Time Spent in Patient Care: (>than 50% of time spent in counselling and/or direct pt care on unit). 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 transplanted heart: [place] heart Associated angina: without angina Depression F32.9
[2020-07-28] MEDS: potassium chloride ER 20 mEq Tablet 40 MEQ PO (09:36)
[2020-07-28] MEDS: atorvastatin 40 mg Tablet 20 MG PO (09:37)
[2020-07-28] MEDS: aspirin 81 mg EC Tablet PO (09:37)
[2020-07-28] MEDS: nicotine 7 mg Patch 1 PATCH TRANSDERMA (09:38)
[2020-07-28] MEDS: warfarin 4 mg Tablet 8 MG PO (13:48)
[2020-07-28] MEDS: escitalopram 10 mg Tablet PO (21:39)
[2020-07-29] VITALS (17 sets, daily range): BP systolic 105–118; BP diastolic 58–74; PULSE 69–92; RESP 16–32; TEMP 36.4–36.8; O2SAT 88–99
[2020-07-29] MEDS: ipratropium-albuterol 3 mL Neb INHALATION ×4 (03:19→22:33)
[2020-07-29 04:57] LABS: INR 2.24 (0.8-1.2)
[2020-07-29 05:17] LABS: Alanine Aminotransferase 16 U/L (0-41); Albumin Level 3.3 g/dL (3.5-5.2); Alkaline Phosphatase 63 IU/L (40-130); Anion Gap 13.2 (5-19); Aspartate Amino Transferase 21 U/L (0-40); Blood Urea Nitrogen 35 mg/dL (8-23); Calcium 8.5 mg/dL (8.5-10.5); Carbon Dioxide 30 mmol/L (22-29); Chloride 100 mmol/L (98-107); Globulin 2.9 g/dL (1.3-4.6); Glucose 111 mg/dL (65-115); Magnesium 2.3 mg/dL (1.7-2.3); Osmolality Calculated 297 mOsm/kg (285-295); Potassium 4.2 mmol/L (3.5-5.1); Sodium 139 mmol/L (136-145); Total Bilirubin 2.1 mg/dL (0.15-1.2); Total Protein 6.2 g/dL (6.6-8.7)
--- NOTE | 2020-07-29 06:11 | PC.NURSE ---
i took care of Mr. Ferrara last night, and comparatively my observation is that he is much better in terms of his altered mental state. Pt was able to carry on conversation with me as well as tell me a story of the last time he was in the hospital. Patient knows name AJ, and knows he is in the hospital, but cant wrap his mind around why. I would describe his state of mind tonight as aloof . Perception of things were skewed but was easily redirected, and if something needed explained further he seemed to understand what was being told to him. For example, pt had bed alarm on for safety and would use his call light before adjusting in the bed because he was aware that if he shifted his weight to much he would set off the alarm. Pt was very pleasant overall and no aggression or agitation was observed and he was also continent, and able to use urinal appropriately, unlike the night before. Pt also stated that he had a similar episode of delirium in the past that was related to tick-borne illness which was appropriately diagnosed, and did state that he was bit by one recently. He expressed his concern if this could be a possible cause for his current admission to the hospital.
[2020-07-29] MEDS: potassium chloride ER 20 mEq Tablet 40 MEQ PO (08:34)
[2020-07-29] MEDS: bumetanide 0.25 mg/mL SDV 4 mL 1 MG IV (08:34)
[2020-07-29] MEDS: escitalopram 10 mg Tablet PO (08:34)
[2020-07-29] MEDS: nicotine 7 mg Patch 1 PATCH TRANSDERMA (08:40)
[2020-07-29] MEDS: aspirin 81 mg EC Tablet PO (08:50)
--- NOTE | 2020-07-29 09:03 | PC.NURSE ---
pt wants bath tonight
[2020-07-29] MEDS: warfarin 4 mg Tablet 8 MG PO (14:10)
[2020-07-29] MEDS: atorvastatin 40 mg Tablet 20 MG PO (20:47)
--- NOTE | 2020-07-29 22:12 | PM.PN ---
Subjective Subjective: Interval history: Patient did better overnight. Has been able to go without sitter 1 night. Slept okay last night though awakens to urinate frequently. More cooperative throughout the day today. I had an opportunity to speak with neurology briefly. They concur that symptoms described are concerning for frontal lobe dementia. Recommendation was for consideration of geriatric psych for further evaluation and initiation of medications. I have discussed this with the patient as well as his and they are not interested in that currently particularly with some indications of improvement. I do think part of the improvement is from getting back on his usual medications. He has an appointment set up with Dr. Rubin in August to address some of what has been going on. Patient himself wants to go home and not anywhere else. Vitals/I&O/Wt Last Vital Signs Temp 98.3 F 07/29/20 20:00 Pulse 82 07/29/20 20:00 Resp 21 H 07/29/20 20:00 BP 109/67 07/29/20 20:00 Pulse Ox 98 07/29/20 20:00 07/29/20 07/29/20 07/29/20 06:59 14:59 22:59 Intake Total 600 / 600 120 / 720 Output Total 400 / 1730 Balance -400 / -140 600 / 600 120 / 720 Physical Exam Narrative: EXAM NARRATIVE: Seen sitting up in the chair. Pleasant. Calm. He denies any current hallucinations but describes seeing a manikin in the room earlier today although there have not been any mannequin's in the room that I am aware of. The remainder of my conversation with him is unremarkable and appropriate. He is smiling. Lungs are clear. Regular rhythm. No pitting edema. No abnormal movements noted. Of note he has been physically getting up and going to the bathroom to urinate. Data : 07/27/20 04:14 07/29/20 04:37 A&P Assessment and plan (1) Shortness of breath: Multifactorial related to noncompliance with medications, CHF and COPD. Status: Acute (2) CHF exacerbation: Echocardiogram shows severely reduced ejection fraction at 10 to 15% with severe global hypokinesis Status: Acute Qualifiers: Heart failure type: systolic Qualified Code(s): I50.23 - Acute on chronic systolic (congestive) heart failure (3) COPD exacerbation: Status: Acute (4) Altered mental status: Progressively worsening over the last 3 to 6 weeks. He has had sundowning, audio and visual hallucinations, significant behavior change at times with urinating in inappropriate places, biting the dog, aggressive behavior toward his of 20+ years. There are some extenuating circumstances such as moving, acute illness and his , loss of a dog among other items described. I suspect he probably has some underlying dementia, likely vascular. Status: Acute Qualifiers: Altered mental status type: delirium Qualified Code(s): R41.0 - Disorientation, unspecified (5) CAD (coronary artery disease): Status: Chronic Qualifiers: Coronary Disease-Associated Artery/Lesion type: [place] artery [place] vs. transplanted heart: [place] heart Associated angina: without angina Qualified Code(s): I25.10 - Atherosclerotic heart disease of [place] coronary artery without angina pectoris (6) Depression: Status: Acute Additional A&P Information Continue temazepam and Lexapro Remains off of sitter since yesterday We will see how he does overnight tonight and discussed with patient and again tomorrow disposition plans. Anticipate discharge tomorrow if they are unwilling to consider geriatric psych placement. He has been accepted at the skilled facility although was not inclined to want to go there. reports that Seroquel had made him worse and so have not continued this. Of note since it was stopped he has done better. With chronic cardiac issues and QT prolongation I am a bit hesitant to consider other antipsychotics. indicates that she just wants him to be able to sleep, calmer and more appropriate and some of his behavior so it may be worth the risk if we are able to achieve this with other medicines but I would like to get neurology and/or psychiatry input in regarding this Appointment with Dr. Rubin as already scheduled in August Continue inhalers as needed Continue Coumadin, recheck INR in the morning On aspirin and statin BiPAP has been ordered due to reported sleep apnea Chronically on oxygen Continue nicotine patch which I think is another contributor to improved cooperation Supportive care otherwise Coumadin provides appropriate DVT prophylaxis Supportive care otherwise Disposition pending continued improvement I asked social work supervisor to help evaluate some social dynamics among different family members to ensure accurate information about home environment Allow natural Attestations Medical Necessity Statement*: Requires ongoing inpatient stay for monitoring of continued hallucinations and other behavioral issues which were present at admission as we adjust management for this issue and resume his chronic medications. While he has shown improvement would like to see evidence of another night of this before disposition, specially considering that currently plan is for him to go back home rather than to a facility. Coding Level of Care Code Acute Machine Repairer Maintenance for Ilene Fwd Diagnoses Shortness of breath R06.02 CHF exacerbation I50.23 Heart failure type: systolic COPD exacerbation J44.1 Altered mental status R41.0 Altered mental status type: delirium CAD (coronary artery disease) I25.10 Coronary Disease-Associated Artery/Lesion type: [place] artery [place] vs. transplanted heart: [place] heart Associated angina: without angina Depression F32.9
[2020-07-30] VITALS (17 sets, daily range): BP systolic 107–135; BP diastolic 55–80; PULSE 60–97; RESP 16–26; TEMP 36.6–37.1; O2SAT 90–97
[2020-07-30] MEDS: ipratropium-albuterol 3 mL Neb INHALATION ×4 (02:47→21:28)
[2020-07-30 05:28] LABS: INR 2.32 (0.8-1.2)
--- NOTE | 2020-07-30 06:05 | PC.NURSE ---
NURSE NOTE: SHIFT SUMMARY: AT START OF SHIFT, PT ALERT AND ORIENTED X3, MOVES ALL EXREMITIES AND FOLLOWS ALL COMMANDS-SAT UP IN CHAIR AND DENIED ANY C/O PAIN OR DISTRESS. AT APPROXIMATELY 0200 THIS MORNING, PT PLACED CALL LIGHT ON AND ASKED THIS NURSE TO FIND THE BIG CAT , THAT JUST JUMPED ACROSS HIS BED AND TABLE. AT APPROXIMATELY 0400, PT GOT UP OUT OF BED STATING THAT HE WAS GOING TO GET A DRINK , AND ATTEMPTING TO GO TO OTHER PATIENT'S SIDE OF ROOM. PT ACCIDENTALLY RIPPED OUT IV AT THIS TIME. PT ALSO ASKED THIS NURSE TO GET HIM A CIGARETTE SINCE HE DID NOT SEE ANY OXYGEN LYING ABOUT. WHEN THIS NURSE ASKED PATIENT WHERE HE WAS, PT RESPONDED, I HAVE ABSOLUTELY NO IDEA, I JUST KNOW I'M NOT HOME. PT CAN STATE NAME AND BIRTHDAY BUT CANNOT SAY WHERE HE IS OR WHEN IT IS. CURRENTLY SITTING IN CHAIR, ALL VS AND ASSESSMENTS CHARTED. WILL CONTINUE TO MONITOR.
[2020-07-30] MEDS: bumetanide 0.25 mg/mL SDV 4 mL 1 MG IV (09:10)
[2020-07-30] MEDS: aspirin 81 mg EC Tablet PO (09:25)
[2020-07-30] MEDS: escitalopram 10 mg Tablet PO (09:26)
[2020-07-30] MEDS: potassium chloride ER 20 mEq Tablet 40 MEQ PO (09:26)
[2020-07-30] MEDS: nicotine 7 mg Patch 1 PATCH TRANSDERMA (09:27)
[2020-07-30] MEDS: warfarin 4 mg Tablet 8 MG PO (13:24)
--- NOTE | 2020-07-30 13:54 | PM.DCS ---
Discharge Providers Date of Admission: 07/26/20 11:33 Date of Discharge: July 30, 2020 Attending Provider at Admission: Daphnie Palacios MD Attending Provider at Discharge: Alley Madison MD Primary Care Provider: Ibrahima Haynes MD Diagnoses at Discharge Discharge Diagnosis (1) Shortness of breath: Status: Acute (2) CHF exacerbation: Status: Acute Qualifiers: Heart failure type: systolic Qualified Code(s): I50.23 - Acute on chronic systolic (congestive) heart failure (3) COPD exacerbation: Status: Acute (4) Altered mental status: Status: Acute Qualifiers: Altered mental status type: delirium Qualified Code(s): R41.0 - Disorientation, unspecified (5) CAD (coronary artery disease): Status: Chronic Qualifiers: Coronary Disease-Associated Artery/Lesion type: [place] artery [place] vs. transplanted heart: [place] heart Associated angina: without angina Qualified Code(s): I25.10 - Atherosclerotic heart disease of [place] coronary artery without angina pectoris (6) Depression: Status: Acute Reason for Visit Reason for Visit: SHORT OF BREATH Discharge Data Data Completed and Pending: Completed Studies During Hospitalization Category Date Time Status CT head wo con* 7 0450 Urgent Cat Scan 07/26/20 00:33 Completed XR chest 1V 24005 Routine Exams 07/26/20 01:58 Completed CV carotid duplex BI* 95515 Routine Ultrasound 07/26/20 08:19 Completed CV echo complete* 99146 Routine Ultrasound 07/26/20 08:19 Completed Labs from last 24 hours 07/30/20 05:08 PT 26.30 H INR 2.32 H Vitals: Last Vital Signs Temp 98.0 F 07/30/20 11:11 Pulse 73 07/30/20 11:11 Resp 26 H 07/30/20 11:11 BP 132/73 07/30/20 11:11 Pulse Ox 92 07/30/20 11:11 Discharge Plan Discharge Patient Disposition: Home Condition: Stable Prescriptions: No Action aspirin [Adult Low Dose Aspirin] 81 mg tablet,delayed release (DR/EC) 81 mg PO DAILY@1000 RF: 0 (DME) nebulizer accessories Kit See Rx Instructions .ROUTE .MEDSUPPLY Qty: 1 RF: 0 quetiapine [Seroquel] 25 mg tablet 25 mg PO DAILY@2200 RF: 0 potassium chloride [Klor-Con M20] 20 mEq tablet,ER particles/crystals 20 meq PO BID@1000,2200 RF: 0 furosemide 80 mg tablet 80 mg PO BID@1000,2200 RF: 0 albuterol sulfate [Proventil HFA] 90 mcg/actuation HFA aerosol inhaler 90 mcg INHALATION PRN RF: 0 metolazone 2.5 mg tablet 2.5 mg PO DAILY PRN (Reason: UNKNOWN) RF: 0 simvastatin 40 mg tablet 40 mg PO DAILY@1000 RF: 0 warfarin 4 mg tablet 8 mg PO BID@0800,2200 RF: 0 cephalexin 500 mg capsule 500 mg PO TID@1000,2200 RF: 0 mupirocin 2 % ointment See Rx Instructions .ROUTE .COMPLEX RF: 0 albuterol sulfate 90 mcg/actuation HFA aerosol inhaler 1 inh INHALATION Q6H PRN (Reason: Shortness Of Breath) RF: 0 albuterol sulfate 2.5 mg/0.5 mL Solution For Nebulization 2.5 mg INHALATION Q4H PRN (Reason: Shortness Of Breath) RF: 0 Patient Instructions: Opioid Safety Activity Restrictions/Additional Instructions: To schedule your second Moderna Vaccine for COVID please sign up on the [place] [employer] website or can call the hotline number with questions. Website: https://covidvaccine.[place].gov/ Hotline# 869.816.4481 Coding Level of Care Code Acute Chg FW PR note Diagnoses Shortness of breath R06.02 CHF exacerbation I50.23 Heart failure type: systolic COPD exacerbation J44.1 Altered mental status R41.0 Altered mental status type: delirium CAD (coronary artery disease) I25.10 Coronary Disease-Associated Artery/Lesion type: [place] artery [place] vs. transplanted heart: [place] heart Associated angina: without angina Depression F32.9
--- NOTE | 2020-07-30 14:33 | PM.PN ---
Subjective Subjective: Interval history: Patient was more confused today again, but not near to the degree that he had been. I again spent an extended period of time reviewing with patient and his clinical suspicion of his symptoms. Again also noted his history in the chart. Things seem to escalate a few weeks ago after he took some Tanya-Mallory. He was seen in the ED at that time. however describes him having had some hallucinations and perseveration on certain things for quite some time prior to that. I was able to talk with a cashier parking lot who has seen him in the outpatient setting and they reported that patient has been a bit different in some of his thoughts and comments for a while. He is talked to the patient a couple of times here in the hospital and did not think that it was too far from baseline in terms of the clot of her station they had although that was limited. Reviewed patient's cardiac findings and from a cardiac standpoint no further work-up or evaluation recommended at this time. QT intervals have been on the higher side. This along with cardiac history makes antipsychotics the risk. Again reported that he also got worse after he was started on some Seroquel at home though he only took 1 or 2 doses. I discussed with the that some of the medicines that we might utilize to treat the hallucinations that he is having in particular have the potential to cause an abnormal heart rhythm in some people. We talked about her goals of wanting him to be able to to get back home, sleep better and get a bit more back to himself. Understanding the risk in keeping in mind his wish not to be resuscitated, is agreeable to starting him on some low-dose Haldol. We will see if this shows any improvement. is not comfortable taking him home. She is also not comfortable presently with geriatric psychiatry facility as none of them are local. This was my first recommendation. He already has an appointment with Dr. Rubin in August. I did review the case with on-call neurology as well as psychiatry and both of their recommendations were for consideration of geriatric psychiatry evaluation. Ultimately after much discussion and deliberation between patient and his , decision was ultimately made for him to go to [facility]. This will help ensure that he is regularly taking his usual medications and in a safe environment where he can be attended to in ways that his is not able anymore. This timeframe will provide a bit more time to see if maintaining regular use of his usual medications leads to continued improvement. He was also given opportunity to see if we can get symptoms improved with medication such as the Haldol were starting tonight and the lexapro that we started a couple of days ago. If these measures fail and if Dr. Rubin or other provider does not find an alternative source for his symptoms lately then they might consider geriatric psychiatry evaluation elsewhere. Right over the possibility of infection of which I am not seeing significant evidence of. No fevers, white count normal CRP is elevated at admission but with him not having had his medicines for some time and chronic conditions I am not surprised by this. He does have some mild hypoproteinemia. He does have an elevated total bilirubin as well as elevated MCV but these date back at least several years. A prolactin level was checked inadvertently when it was intended to be procalcitonin. Procalcitonin was normal but the prolactin level was just above upper limits of normal. TSH was normal. B12 and folate were normal. He did have elevated cardiac enzymes but unremarkable delta. Echocardiogram showed continued low ejection fraction. Carotid ultrasound did not show significant stenosis. CT of the head did not show evidence of hemorrhage or significant indicators of mass. There were some chronic white matter changes. Had a negative ammonia level. Negative influenza and SARS-CoV-2 testing. He did receive the first dose of Covid vaccine a few weeks ago but onset of symptoms was prior to that. Urinalysis is negative Vitals/I&O/Wt Last Vital Signs Temp 98.0 F 07/30/20 11:11 Pulse 73 07/30/20 11:11 Resp 26 H 07/30/20 11:11 BP 132/73 07/30/20 11:11 Pulse Ox 92 07/30/20 11:11 07/29/20 07/30/20 07/30/20 22:59 06:59 14:59 Intake Total 270 / 870 200 / 1070 360 / 360 Output Total 550 / 550 Balance 270 / 870 -350 / 520 360 / 360 Physical Exam Narrative: EXAM NARRATIVE: Lungs are clear to auscultation, regular rhythm, no lower extremity edema. Has a difficult time maintaining focus during conversations and will frequently drift off talking about events during his 's prolonged hospital stay. Has been repetitive in some of what he talks about such as during the course of the time today stating 3 times that nobody has told him where he is although we have done this every time he has brought that up. Previously he was able to recall that we had had a similar conversation but that did not take place today. It took approximately 8 minutes to convince him that the 2 pills he was about to take was his Coumadin not something else, although I believe this may have had to do with a different coloration or shape of the tablets. Data : 07/30/20 05:08 07/30/20 05:08 A&P Assessment and plan (1) Shortness of breath: Multifactorial related to noncompliance with medications, CHF and COPD. Exertion now Improved, noticeable primarily on Status: Acute (2) CHF exacerbation: Echocardiogram shows severely reduced ejection fraction at 10 to 15% with severe global hypokinesis Improved Status: Acute Qualifiers: Heart failure type: systolic Qualified Code(s): I50.23 - Acute on chronic systolic (congestive) heart failure (3) COPD exacerbation: Improved Status: Acute (4) Altered mental status: Progressively worsening over the last 4 to 6 weeks. He has had sundowning, audio and visual hallucinations, significant behavior change at times with urinating in inappropriate places, biting the dog, aggressive behavior toward his of 20+ years. There are some extenuating circumstances such as moving, acute illness and his , loss of a dog among other items described. I suspect he probably has some underlying dementia, likely vascular. Status: Acute Qualifiers: Altered mental status type: delirium Qualified Code(s): R41.0 - Disorientation, unspecified (5) CAD (coronary artery disease): Status: Chronic Qualifiers: Coronary Disease-Associated Artery/Lesion type: [place] artery [place] vs. transplanted heart: [place] heart Associated angina: without angina Qualified Code(s): I25.10 - Atherosclerotic heart disease of [place] coronary artery without angina pectoris (6) Depression: Status: Acute Additional A&P Information Continue temazepam and Lexapro Add Haldol twice daily Sitter since 07/28 but was confused intermittently today and wanted to leave a couple of times After long discussion and decision making, plan is for disposition to [facility] tomorrow if he does okay tonight Appointment with Dr. Rubin as already scheduled in August for additional evaluation If escalates in the interim would consider [facility] psych evaluation Change to home Lasix Recheck electrolytes Continue current management otherwise Attestations Medical Necessity Statement*: Requires continued inpatient stay Time Spent in Patient Care: (>than 50% of time spent in counselling and/or direct pt care on unit). 82 minutes spent in direct contact with patient and his , nursing staff, wrapper caser, his cashier parking lot, psychiatry Coding Level of Care Code Acute Booster Pump Operator for g Fwd Diagnoses Shortness of breath R06.02 CHF exacerbation I50.23 Heart failure type: systolic COPD exacerbation J44.1 Altered mental status R41.0 Altered mental status type: delirium CAD (coronary artery disease) I25.10 Coronary Disease-Associated Artery/Lesion type: [place] artery [place] vs. transplanted heart: [place] heart Associated angina: without angina Depression F32.9
[2020-07-30 14:47] LABS: Basophils # 0.1 10^3/uL (0.0-0.1); Basophils % 1.5 %; Eosinophils # 0.1 10^3/uL (0.0-0.8); Eosinophils % 1.8 %; Hematocrit 48.4 % (42.0-52.0); Lymphocytes # 1.3 10^3/uL (0.8-4.8); Lymphocytes % 19.7 %; Mean Corpuscular Hemoglobin 33.3 pg (28.0-34.0); Mean Corpuscular Volume 107.6 fL (80-94); Mean Platelet Volume 11.7 fL (7.4-10.4); Monocytes # 0.6 10^3/uL (0.2-0.9); Monocytes % 8.7 %; Neutrophils # 4.44 10^3/uL (1.8-7.7); Nucleated Red Blood Cells % 0 %; Platelet Count 149 10^3/cmm (130-400); Red Cell Distribution Width 14.6 % (12.1-15.1); White Blood Count 6.5 10^3/uL (4.0-10.0)
[2020-07-30 15:04] LABS: Anion Gap 18.2 (5-19); Blood Urea Nitrogen 34 mg/dL (8-23); Calcium 8.6 mg/dL (8.5-10.5); Carbon Dioxide 24 mmol/L (22-29); Chloride 101 mmol/L (98-107); Glucose 107 mg/dL (65-115); Magnesium 2.2 mg/dL (1.7-2.3); Osmolality Calculated 296 mOsm/kg (285-295); Phosphorus 3.4 mg/dL (2.5-4.5); Potassium 4.2 mmol/L (3.5-5.1); Sodium 139 mmol/L (136-145)
--- NOTE | 2020-07-30 16:13 | PC.NURSE ---
First dose of haldol to be administered at 1800 per verbal order from Dr. Madison. RBVO.
[2020-07-30] MEDS: haloperidol 1 mg Tablet 0.5 MG PO (17:48)
--- NOTE | 2020-07-30 17:49 | PC.NURSE ---
0.5 mg haldol wasted with IRLANDA Torres in medication disposal bottle in med room.
--- NOTE | 2020-07-30 18:34 | PM.PN ---
Subjective Subjective: Interval history: Patient underwent coronary angiogram by Dr. Badillo he was noted to have significant tandem lesion in the ostial mid and distal LAD. He has nonobstructive disease of circumflex and RCA. I was asked by Dr. Badillo to assess him for PCI. Patient was explained all risk benefit and alternative for the procedure by myself, he gave me permission to proceed with it. We treated the very distal LAD around the apex with balloon angioplasty since it is smallcaliber tapering and calcified vessel, ostial to mid LAD was treated with 2 drug-eluting stents. Patient was transferred back to [facility]. After a couple of hours patient started having chest pain, EKG was performed which showed anterolateral mild ST elevation with reciprocal changes, he was immediately taken to the Interior Painter noted to have very distal LAD acute occlusion where balloon angioplasty was performed. It was then treated with 2 oh millimeters drug-eluting stent. Since this time we went through right groin approach and imaging quality was better mid LAD in between the previously placed ostial and mid stent was also noted to be moderate to severely diseased. iFR was performed which turned out to be 0.84 and significant. Distal segment was also treated with drug-eluting stent postdilated with noncompliant balloon. Distal to this stent some haziness was noted which is thought to be calcium and not dissection, since patient had good flow no further action was performed. Patient was transferred back to [facility]. He was loaded with 600 mg of Plavix, Aggrastat was given for couple of hours for antiplatelet activity. Currently patient is stable and denies any chest pain. We will repeat EKG showed resolution of ST elevation in anterolateral leads. Vitals/I&O/Wt Last Vital Signs Temp 98.0 F 07/30/20 11:11 Pulse 81 07/30/20 15:15 Resp 16 07/30/20 15:04 BP 132/73 07/30/20 11:11 Pulse Ox 97 07/30/20 15:04 07/30/20 07/30/20 07/30/20 06:59 14:59 22:59 Intake Total 200 / 1070 360 / 360 240 / 600 Output Total 550 / 550 Balance -350 / 520 360 / 360 240 / 600 Physical Exam Narrative: EXAM NARRATIVE: GENERAL: Patient is alert, awake and oriented x3 NECK: No jugular vein distension. HEENT: No cyanosis. No icterus. No pallor. HEART: Regular S1 and S2. No murmur, rub or gallop. LUNGS: Clear to auscultate bilaterally. ABDOMEN: Soft, nontender and nondistended. Positive bowel sounds. No guarding, rebound or tenderness. CENTRAL NERVOUS SYSTEM: Grossly nonfocal. EXTREMITIES: Lower extremities without edema bilaterally. Data : 07/30/20 05:08 07/30/20 05:08 A&P Assessment and plan (1) CAD (coronary artery disease): As defined above patient has been treated with drug-eluting stent to ostial and mid LAD. Currently stable continue aspirin statin Plavix continue to monitor for contrast-induced nephropathy. Further plan be advised as per progress of the patient Status: Chronic Qualifiers: Coronary Disease-Associated Artery/Lesion type: [place] artery [place] vs. transplanted heart: [place] heart Associated angina: without angina Qualified Code(s): I25.10 - Atherosclerotic heart disease of [place] coronary artery without angina pectoris (2) CHF (congestive heart failure): Patient is stable continue current regimen Status: Chronic Qualifiers: Heart failure type: unspecified Heart failure chronicity: chronic Qualified Code(s): I50.9 - Heart failure, unspecified Attestations Medical Necessity Statement*: Patient require continuation hospitalization for above defined care Coding Level of Care Code New Pt Acute Door Assembler for Chg Fwd Patient Type New History Detailed Exam Detailed Medical Decision Making Moderate Complexity Diagnoses CAD (coronary artery disease) I25.10 Coronary Disease-Associated Artery/Lesion type: [place] artery [place] vs. transplanted heart: [place] heart Associated angina: without angina CHF (congestive heart failure) I50.9 Heart failure type: unspecified Heart failure chronicity: chronic
[2020-07-30] MEDS: atorvastatin 40 mg Tablet 20 MG PO (20:34)
[2020-07-30] MEDS: temazepam 15 mg Capsule PO (20:34)
[2020-07-31] VITALS (16 sets, daily range): BP systolic 101–129; BP diastolic 32–81; PULSE 63–98; RESP 16–19; TEMP 36.4–36.8; O2SAT 94–99
[2020-07-31] MEDS: LORazepam 2 mg/mL INJ 1 mL 0.5 MG IVP (02:08)
--- NOTE | 2020-07-31 02:33 | PC.NURSE ---
NURSE NOTE: AT 0200, PT GOT UP OUT OF BED AND REFUSING TO GET BACK IN BED. ATIVAN 0.5MG GIVEN ORDERED AT 0208. AT 0215, REPORT GIVEN TO EDI FOURNIER AND PATIENT TRANSPORTED TO ROOM 255 PER MAGGY POSADAS. NO DISTRESS NOTED AT TIME OF TRANSFER. ALL VS AND ASSESSMENTS CHARTED.
[2020-07-31] MEDS: ipratropium-albuterol 3 mL Neb INHALATION ×4 (03:50→20:13)
[2020-07-31] MEDS: aspirin 81 mg EC Tablet PO (09:01)
[2020-07-31] MEDS: nicotine 7 mg Patch 1 PATCH TRANSDERMA (09:01)
[2020-07-31] MEDS: FUROsemide 40 mg Tablet PO ×2 (09:01→14:38)
[2020-07-31] MEDS: escitalopram 10 mg Tablet PO (09:01)
[2020-07-31] MEDS: potassium chloride ER 20 mEq Tablet 40 MEQ PO (09:01)
--- NOTE | 2020-07-31 10:27 | ECG_ITS ---
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 Measurements Intervals [place] Rate: 70 P: 76 MA: 171 QRS: 46 QRSD: 118 T: 214 QT: 447 QTc: 484 Interpretive Statements SINUS RHYTHM WITH OCCASIONAL VENTRICULAR PREMATURE COMPLEXES LEFT VENTRICULAR HYPERTROPHY AND ST-T CHANGE [VOLTAGE CRITERIA PLUS ST/T ABNORMALITY] POSSIBLE INFERIOR MYOCARDIAL INFARCTION [30 ms Q WAVE IN II/aVF], OF INDETERMINATE AGE Compared to ECG 07/28/2020 09:00:17 No significant changes Electronically Signed On 08-04-2020 12:30:23 CDT by Abimbola Kline M.D. [email or web address]
--- NOTE | 2020-07-31 10:27 | XR_ITS ---
WS: [id number] Portable AP upright chest, 07/31/2020 Clinical Data: hypoxemia, acute change Comparison: Portable chest, 07/26/2020. Findings: The heart remains enlarged and there are bilateral interstitial markings which may represen t increased pulmonary vascularity. There is a small right pleural effusion. There are no nodules or m asses. Midline sternotomy sutures are present. The aortic arch shows calcification. Monitor leads on the chest wall. XR/XR chest 1V portable [id number] Impression: 1. Cardiomegaly and pulmonary vascular congestion. 2. Atherosclerosis.
--- NOTE | 2020-07-31 10:31 | PM.PN ---
Subjective Subjective: Interval history: Walked in the patient's room and he was leaning over to the right in the bed. He was lethargic but I was able to wake him up. I asked him why he was sitting that way and he said that it felt better. He would not tell me what was wrong. Oxygen saturation checked and was low in the mid 80s. Oxygen ordered and placed. Respiratory called for ABG. Reviewed with nursing staff. He received his first dose of temazepam last evening around 8 PM. Have been ordered for a couple of days but not needed or requested. Also received some Ativan 0.5 mg this morning around 2:00. It is the first dose that he has received since July 27. Haldol 0.5 mg was started yesterday afternoon around 6 PM. He has not had the morning dose today. Lexapro was started on the . Not too long prior to this, patient had been ambulating and walking around. He ate breakfast. He was sleeping when he got up but was oriented to person. Again not oriented so much to place but knew that he was not at home. He was interacting with staff. Last seen right an hour prior to this. Was not on telemetry. Vitals/I&O/Wt Last Vital Signs Temp 97.6 F 07/31/20 10:27 Pulse 67 07/31/20 10:27 Resp 18 07/31/20 10:27 BP 113/70 07/31/20 10:27 Pulse Ox 97 07/31/20 10:27 07/30/20 07/31/20 07/31/20 22:59 06:59 14:59 Intake Total 480 / 840 120 / 120 Output Total 400 / 400 Balance 80 / 440 120 / 120 Physical Exam Narrative: EXAM NARRATIVE: He had some cyanosis of his right upper extremity where he was leaning on it and also had some perioral cyanosis. Pulse oximetry done by me at the bedside showed oxygen saturations in the mid 80s. Heart rate in the 60s. Blood pressure 110-120 systolic. Patient had some pursed lip breathing. Lungs are clear although a bit shallow respirations. No wheezes. No rhonchi. No Rales. He has a regular rate and rhythm. No murmurs. No JVD. Abdomen is soft. He is wearing pull-up pants and it does look like there is urine in them. He is able to squeeze both hands equally. Pupils are equally reactive. Extraocular movements are grossly intact. Face is symmetric. Toes are downgoing. Data : 07/30/20 05:08 07/30/20 05:08 A&P Assessment and plan (1) Acute encephalopathy: Currently feel that this is secondary to having received both the first dose of temazepam last evening, a dose of Ativan along with the initiation of low-dose Haldol yesterday. When I first walked into the room my perception was that he may be having a bit of a dystonic reaction but after repositioning him this was less likely. He has COPD but current examination does not really support that. is reported that he has sleep apnea though has not been demonstrated here. Initially a BiPAP was ordered but he has not utilized that I am aware of. He had a subtherapeutic INR prior to admission with resumption of Coumadin. Currently with a therapeutic INR, nevertheless PE remains in the differential. Arrhythmia is a consideration as is an acute ischemic event from either cardiopulmonary or PATHOLOGY LABORATORY AIDES TEACHER etiology. Seizure has to be considered but no abnormal movements noted. EEG has been ordered previously but patient was not amendable to such a test. Have not seen evidence of any tonic-clonic or absence type seizures during the hospital stay thus far, or but still needs to be considered. Afebrile. Infection is another consideration but seems less likely presently. Status: Acute (2) Acute hyperactive delirium due to another medical condition: Primary diagnosis at the time of admission, felt secondary to him being noncompliant with medications for a while. I actually have strong suspicion that patient has some vascular or other form of dementia, particularly frontal lobe dementia based on the symptoms described. He has some intermittent hallucinations along with perseveration of ideas for some time but has had progressively worsening symptoms over the last 3 to 6 weeks since his came home from prolonged hospital and subsequent rehab stay, they moved, he lost a beloved dog and patient sister came to stay with them for a bit. describes (and we have seen here) evidence of sundowning, audio and visual hallucinations, significant and often impulsive behavior change at times with urinating in inappropriate places, biting the dog, aggressive behavior toward his of 20+ years. Additionally he started refusing his medications. He has had some improvement with resumption of his usual medications but continues to exhibit symptoms suggestive of dementia. With continued management of his chronic illnesses he may improve and this be deemed to be due to another medical condition. I have not pursued Status: Acute (3) Shortness of breath: Multifactorial related to noncompliance with medications, CHF and COPD. Status: Acute (4) CHF exacerbation: Echocardiogram shows severely reduced ejection fraction at 10 to 15% with severe global hypokinesis, not new. Has declined AICD. Received IV diuresis intially. Status: Acute Qualifiers: Heart failure type: systolic Qualified Code(s): I50.23 - Acute on chronic systolic (congestive) heart failure (5) COPD exacerbation: Diagnosis at admission but clinically improved rapidly and was not evident at the time of my initial examination Status: Acute (6) CAD (coronary artery disease): history of CABG Status: Chronic Qualifiers: Coronary Disease-Associated Artery/Lesion type: [place] artery [place] vs. transplanted heart: [place] heart Associated angina: without angina Qualified Code(s): I25.10 - Atherosclerotic heart disease of [place] coronary artery without angina pectoris (7) Depression: Suspected diagnosis at this time based on some of the conversations that we have and some emotional lability, tearfulness and all that he and his have been through lately Status: Acute Additional A&P Information Oxygen therapy Applied telemetry monitoring Stat ABG, EKG, troponin, electrolytes, chest x-ray Will order a stat D-dimer. He had one on July 25 so can look at for comparison. INR was 2.8 today. Follow-up above and consider CTA of the chest as indicated and repeat CT of the head Stop temazepam and Ativan Hold Haldol presently but consider ability to continue depending on clinical course Remove nicotine patch Decrease Escitalopram dosing On aspirin, atorvastatin and home Coumadin Home Lasix resumed with oral potassium Has as needed well as scheduled breathing treatments Therapeutic INR today Follow-up above and determine future plans of care. I have canceled disposition to skilled facility today. I reviewed the case extensively with the accepting physician at the facility to update them in the event that he is potentially able to be discharged there this weekend. We will update the on what is going on when I have a little bit more information. Allow natural Attestations Medical Necessity Statement*: Requires continued inpatient stay to address acute encephalopathy which I believe is due to hypoxemia and medications though at significant risk of other possible etiologies. Work-up is as noted above. Time Spent in Patient Care: (>than 50% of time spent in counselling and/or direct pt care on unit). 65 Coding Level of Care Code Acute Floor Installer for Chg Fwd Diagnoses Acute encephalopathy G93.40 Acute hyperactive delirium due to another medical condition F05 Shortness of breath R06.02 CHF exacerbation I50.23 Heart failure type: systolic COPD exacerbation J44.1 CAD (coronary artery disease) I25.10 Coronary Disease-Associated Artery/Lesion type: [place] artery [place] vs. transplanted heart: [place] heart Associated angina: without angina Depression F32.9
[2020-07-31 10:33] LABS: ABG PCO2 41.5 mmHg (35-45); ABG PH Result 7.44 (7.35-7.45); Arterial Blood Gas Hematocrit 44.8 % (42-52); Base Excess ABG 3.5 mmol/L (-2.0-2.0); Blood Gas Allen Test Pos; Blood Gas Operator Identificat glc; Blood Gas Sample Site Radial, left; Blood Gas Sample Type Arterial; HCO3 ABG 28.1 mmol/L (22-26); Oxygen Device NC; PO2 ABG 67.4 mmHg (80.0-100.0)
[2020-07-31 10:35] LABS: Blood Gas CCRB Time 1034
--- NOTE | 2020-07-31 11:08 | PC.SOCIAL ---
*IMM UPDATE* Service Center Supervisor gave patient's , Dianelys verbal IMM update via phone. She verbalized understanding. 07/31/20 @ 0900 Initialed, dated, timed and placed in chart.
[2020-07-31 11:09] LABS: D Dimer 1.16 ug/mIFEU (0-0.59)
[2020-07-31 11:17] LABS: Ammonia 17 umol/L (16-60); Lactic Sepsis W/Reflex 1.8 mmol/L (0.5-2.2)
[2020-07-31 11:18] LABS: Alanine Aminotransferase 18 U/L (0-41); Albumin Level 3.5 g/dL (3.5-5.2); Alkaline Phosphatase 63 IU/L (40-130); Anion Gap 15.5 (5-19); Aspartate Amino Transferase 18 U/L (0-40); Blood Urea Nitrogen 33 mg/dL (8-23); Calcium 8.9 mg/dL (8.5-10.5); Carbon Dioxide 26 mmol/L (22-29); Chloride 103 mmol/L (98-107); Glucose 107 mg/dL (65-115); Osmolality Calculated 298 mOsm/kg (285-295); Potassium 4.5 mmol/L (3.5-5.1); Sodium 140 mmol/L (136-145); Total Bilirubin 1.7 mg/dL (0.15-1.2); Total Protein 6.5 g/dL (6.6-8.7)
[2020-07-31 11:19] LABS: Troponin(5th) Baseline 66 ng/L (0-15)
--- NOTE | 2020-07-31 11:33 | CT_ITS ---
WS: [id number] CTA scan of the chest with IV contrast. Additional two-dimensional coronal and sagittal reconstructio n and MIP images was performed. 07/31/2020 Clinical Data: acute hypoxemia/AMS, elevated d dimer Comparison: CTA chest, 06/02/2015. DLP: 669.[address] scans at [facility] use at least one of these dose optimization techniques: automat ed exposure control; mA and/or kV adjustment per patient size (includes targeted exams where dose is matched to clinical indication); or iterative reconstruction. Findings: The central pulmonary arteries fill normally. The peripheral arterials in all lobes show poor filling and these findings are consistent with multiple small pulmonary emboli. Pulmonary embolic disease i s present. There is a small right pleural effusion. There is a very small left pleural effusion with left latera l pleural thickening in the inferior aspect. No pneumonia is seen. The pulmonary vascularity is incre ased. The heart size is enlarged with no pericardial effusion. The pulmonary artery is modestly dilat ed. The thoracic aorta shows no dissection but there is calcification in the wall. There is no axilla ry or mediastinal adenopathy. The thyroid gland shows normal enhancement. The trachea bifurcates into the bronchi. The upper abdomen shows no abnormalities. There is a lesion in the central portion of the right lobe of the liver which is probably an hemangioma. The patient has had an aortic stent graft inserted. The bones of the thoracic and upper lumbar spine are not remarkable. CT/CT angio chest PE protcl [id number] Impression: 1. Pulmonary embolic disease. 2. Cardiomegaly and pulmonary vascular congestion. 3. Small right pleural effusion and even smaller left pleural effusion.
--- NOTE | 2020-07-31 11:33 | CT_ITS ---
WS: [id number] CT HEAD NONCONTRAST HISTORY: acute ams, on coumadin TECHNIQUE: Contiguous axial imaging performed through the brain in 2.5 mm imaging. Bone and soft tiss ue windows. Sagittal and coronal reformats reviewed. All CT scans at [facility] use at le ast one of these dose optimization techniques: automated exposure control; mA and/or kV adjustment pe r patient size (includes targeted exams where dose is matched to clinical indication); or iterative r econstruction. DLP: 1835.89 mGy.cm COMPARISON: 07/26/2020 No acute intracranial hemorrhage, midline shift or mass effect. Mild atrophy and chronic ischemic disease. Prior moderate-sized LEFT parietal infarct. Lacunar infarc t in the insular ribbon on the LEFT. These findings were both present on a prior CT from 07/08/2020. Ventricles: Mild ventriculomegaly. No inferior displacement of cerebellar tonsils. Paranasal sinuses: As visualized are clear. Mastoid air cells: Well pneumatized. Calvarium and scalp: Skull is intact with no soft tissue edema or swelling. CT/CT head wo con* 18521 IMPRESSION: 1. No acute intracranial hemorrhage or edema. 2. 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 3. Ventriculomegaly, unchanged.
--- NOTE | 2020-07-31 12:27 | ECG_ITS ---
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 Measurements Intervals [place] Rate: 78 P: 84 PA: 170 QRS: 64 QRSD: 126 T: 236 QT: 432 QTc: 493 Interpretive Statements SINUS RHYTHM WITH OCCASIONAL VENTRICULAR PREMATURE COMPLEXES LEFT VENTRICULAR HYPERTROPHY AND ST-T CHANGE [VOLTAGE CRITERIA PLUS ST/T ABNORMALITY] INFERIOR MYOCARDIAL INFARCTION [40+ ms Q WAVE AND/OR ST/T ABNORMALITY IN II/aVF], OF INDETERMINATE AGE Compared to ECG 07/31/2020 10:58:26 No significant changes Electronically Signed On 08-04-2020 12:50:09 CDT by Abimbola Kline M.D. [email or web address] coast veterans health care systemDoAppmiami valley hospital.[employer] [employer]/store/[id number]
[2020-07-31] MEDS: iohexol 350 mg/mL 100 mL Btl IV (13:02)
[2020-07-31] MEDS: warfarin 4 mg Tablet 8 MG PO (14:39)
--- NOTE | 2020-07-31 15:13 | USCV_ITS ---
Grabiel Ferrara Age: 69 Gender: M : 1950 Exam Date: 07/31/2020 15:54 Ordering Phys: Alley Madison MD Technologist: Lynda Dutta [place] [facility] [place]: [place] HISTORY: Pulmonary embolism. PROCEDURES: Venous duplex imaging was performed in bilateral lower extremities. The following venous structures were evaluated: common femoral vein, profunda vein, proximal portion of the greater saphenous vein, superficial femoral vein, and the popliteal vein. In addition, the posterior tibial and peroneal trunk were evaluated. Serial compression, augmentation maneuvers, and spectral Doppler flow evaluation were performed. FINDINGS: Normal 2-D Doppler and augmentation and compressibility throughout the lower extremity venous structures. Additional imaging through the proximal calf veins also reveals no thrombus. Limited evaluation of the greater saphenous vein is patent with no thrombus.. CONCLUSIONS No DVT bilateral lower extremities. Dr. Daphnie Sanford DO (Electronically Signed) Final Date: 31 July 2020 16:26 S
[2020-07-31 15:23] LABS: Troponin 5 2HR 77.03 ng/L (0-15)
--- NOTE | 2020-07-31 16:27 | ECG_ITS ---
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 Measurements Intervals [place] Rate: 70 P: 54 DC: 165 QRS: 52 QRSD: 118 T: 211 QT: 445 QTc: 482 Interpretive Statements SINUS RHYTHM WITH OCCASIONAL VENTRICULAR PREMATURE COMPLEXES LEFT VENTRICULAR HYPERTROPHY AND ST-T CHANGE [VOLTAGE CRITERIA PLUS ST/T ABNORMALITY] INFERIOR MYOCARDIAL INFARCTION [40+ ms Q WAVE AND/OR ST/T ABNORMALITY IN II/aVF], PROBABLY OLD Compared to ECG 07/31/2020 13:48:56 No significant changes Electronically Signed On 08-02-2020 10:54:26 CDT by Abimbola Kline M.D. [email or web address] general hospitalCalastonenorwalk [facility].[employer]/store/[id number]
[2020-07-31 17:52] LABS: Troponin 5 6HR 71.61 ng/L (0-15); Troponin 5 6HR Delta 5.61 ng/L (0-12)
[2020-07-31] MEDS: atorvastatin 40 mg Tablet 20 MG PO (21:24)
[2020-08-01] VITALS (14 sets, daily range): BP systolic 107–123; BP diastolic 68–76; PULSE 70–91; RESP 17–22; TEMP 36.3–36.8; O2SAT 93–100
[2020-08-01] MEDS: ipratropium-albuterol 3 mL Neb INHALATION ×4 (03:42→19:59)
[2020-08-01 03:59] LABS: ABG PCO2 39.3 mmHg (35-45); ABG PH Result 7.43 (7.35-7.45); Arterial Blood Gas Hematocrit 44.8 % (42-52); Base Excess ABG 1.7 mmol/L (-2.0-2.0); Blood Gas Sample Site Brachial, left; Blood Gas Sample Type Arterial; HCO3 ABG 26.1 mmol/L (22-26); Oxygen Device NC; PO2 ABG 98.6 mmHg (80.0-100.0)
[2020-08-01 06:56] LABS: Basophils # 0.1 10^3/uL (0.0-0.1); Basophils % 1.4 %; Eosinophils # 0.1 10^3/uL (0.0-0.8); Eosinophils % 2.3 %; Hematocrit 46.8 % (42.0-52.0); Hemoglobin 14.5 g/dL (11.7-16.6); Lymphocytes # 1.5 10^3/uL (0.8-4.8); Lymphocytes % 25.9 %; Mean Corpuscular Volume 106.4 fL (80-94); Mean Platelet Volume 11.3 fL (7.4-10.4); Monocytes # 0.6 10^3/uL (0.2-0.9); Monocytes % 9.6 %; Neutrophils # 3.45 10^3/uL (1.8-7.7); Neutrophils % 60.3 %; Nucleated Red Blood Cells % 0 %; Platelet Count 139 10^3/cmm (130-400); Red Cell Distribution Width 14.4 % (12.1-15.1); White Blood Count 5.7 10^3/uL (4.0-10.0)
[2020-08-01 07:04] LABS: INR 3.04 (0.8-1.2)
[2020-08-01 07:33] LABS: Anion Gap 14.4 (5-19); Blood Urea Nitrogen 34 mg/dL (8-23); Calcium 8.7 mg/dL (8.5-10.5); Carbon Dioxide 25 mmol/L (22-29); Chloride 104 mmol/L (98-107); Glucose 94 mg/dL (65-115); Osmolality Calculated 295 mOsm/kg (285-295); Potassium 4.4 mmol/L (3.5-5.1); Sodium 139 mmol/L (136-145)
[2020-08-01] MEDS: aspirin 81 mg EC Tablet PO (09:46)
[2020-08-01] MEDS: FUROsemide 40 mg Tablet PO ×2 (09:46→16:34)
[2020-08-01] MEDS: potassium chloride ER 20 mEq Tablet 40 MEQ PO (09:46)
[2020-08-01] MEDS: escitalopram 10 mg Tablet 5 MG PO (09:47)
--- NOTE | 2020-08-01 17:26 | P.PN_ITS ---
Subjective Subjective: Interval history: Talked with the patient for quite a while today. He was able to converse without getting quite as tangential or fixated on specific topics. He still intermix his discussions about when his was in the hospital and at one point thought that he was in the same hospital that she was in and that she was still in that hospital. It took a bit of redirection for him to understand that her hospitalization and his current hospitalization occurred at 2 different points in time that have been by several months. Explained to him about the events of yesterday and how we identified that he had multiple small pulmonary emboli in both of his lungs. He confirmed he is not on oxygen at home. Explained that he is currently requiring 2 to 3 L of oxygen. Discussed patient's case with hematology. My suspicion is that inconsistencies and taking his Coumadin may have led to fluctuations in INR contributing to clot formation. He has had PEs before. Recommendation at this point in time is to treat patient with Lovenox for a week in addition to Xarelto 20 mg a day. Under 340 B pricing this can be obtained for $15-$20 a month at the [facility] pharmacy. Dr. Travis is willing to this area to facilitate getting this. Vitals/I&O/Wt Last Vital Signs Temp 97.5 F L 08/01/20 15:27 Pulse 71 08/01/20 15:27 Resp 18 08/01/20 15:27 BP 123/73 08/01/20 15:27 Pulse Ox 100 08/01/20 15:27 08/01/20 08/01/20 08/01/20 06:59 14:59 22:59 Intake Total 500 / 670 510 / 510 Output Total 300 / 1650 220 / 220 Balance 200 / -980 290 / 290 Physical Exam Narrative: EXAM NARRATIVE: More alert than yesterday. Calmer than he has been. Seems down. Lungs are clear with improved aeration. Cardiovascular exam reveals an irregular rhythm rate controlled. Abdomen is soft, nontender. No pitting edema. Not as restless today. No tremors. Oriented to year. Again had to be told where he was. Data : 08/01/20 06:23 08/01/20 06:23 A&P Assessment and plan (1) Pulmonary emboli: Multiple peripheral bilateral in a patient who has been chronically on Coumadin. He had a low range therapeutic level at the time of admission here and a therapeutic level of Coumadin at the time he clinically appeared to have possibly developed PEs. He had an initial D-dimer that was negative or normal. Repeat D-dimer during event on July 31 was elevated. Because of these abnormalities and hypoxemia that acutely developed necessitating oxygen, CTA of the chest was done. has reported that he has been having issues with taking his medicines at home regularly for the last several weeks and possibly over the last few months while his she was hospitalized. He has either had an acute PE in the hospital on therapeutic Coumadin dosing or they had occurred prior to admission. Difficult to know for certain either way although the event did seem acute the other morning. Patient does describe increased exertional dyspnea over the last few months in which he does not seem quite right, potentially suggestive of exertional hypoxemia. He has several potential reasons for this however. Status: Acute Qualifiers: Acute cor pulmonale presence: without acute cor pulmonale Chronicity: unspecified Pulmonary embolism type: other Qualified Code(s): I26.99 - Other pulmonary embolism without acute cor pulmonale (2) Acute encephalopathy: Metabolic from hypoxemia and medications. Occurred on 07/31/2020. initially considered soley due to administration of several sedating medications in the 15 hours prior to being found with decreased level of responsiveness and hypoxemia. Subsequent work-up revealed multiple small peripheral pulmonary emboli as well. Suspect a combination of the 2 is the culprit. He was found not too terribly long after he had been up walking around with therapy. Was noted to be sleepy with breakfast. Has improved compared to 07/31 but not back to how he had been in the day or 2 preceding this. No evidence of acute COPD exacerbation, seizure, infection, arrhythmia or acute VESSEL MASTER or cardiac event identified. Status: Acute (3) Acute hyperactive delirium due to another medical condition: Primary diagnosis at admission due to noncompliance with his home medications and after effects of this. I think the PEs that are identified is also contributing factor. The more I have gotten to know him the more I suspect that he has some mild dementia that has not been formally diagnosed. Likely vascular. There are features suggestive of frontal lobe dementia with hallucinations, impulsivity, perseveration of ideas and vocalizations. These types of symptoms have been more prominent in the last 3 to 4 weeks. It should be noted that there has been an excessive amount of stress and change for him over the last 6 months or so. His was hospitalized for an aneurysm and subsequently had to go to rehab after getting a DIRECT MAIL COORDINATOR shunt and other care during a prolonged hospital stay. She came home and then they moved to a new house. A beloved dog . A [id number] came to stay to help care for his . Several other significant events have happened and I think all of the changes may have precipitated progression of the symptoms. It should also be noted that he has not been sleeping well for some time and could be his symptoms are secondary to this. He has evidence of sundowning, audio and visual hallucinations, intermixing of different time events that he has experienced with current day, significant and sometimes impulsive behavior change with urinating in inappropriate places, biting the dog, aggressive behavior toward his of 20+ years. Additionally he started refusing his medications. Primary care provider started him on Seroquel but the reports it made him worse. Here he received a milligrams of olanzapine in the emergency room and was excessively sedate the following day and woke up without much improvement. He was given some Seroquel here without much improvement. He received a few doses of Ativan that seemed to work for short while. Unfortunately he got his first dose of low-dose Haldol on the same evening that he received the first dose of temazepam along with a dose of Ativan. He was sedate the following day after this combination although it may have been secondary to hypoxemia from PEs. He has better today but I am not certain if this is because he slept most of yesterday or because he is on oxygen now. Status: Acute (4) Shortness of breath: At admission felt primarily related to noncompliance with medications leading to suboptimally controlled CHF and COPD. Bilateral pulmonary emboli do believe are probably also contributing factor to this. Status: Acute (5) CHF exacerbation: Echocardiogram shows severely reduced ejection fraction at 10 to 15% with severe global hypokinesis, not new. Has declined AICD. Received IV diuresis intially to oral. Negative fluid balance. Status: Acute Qualifiers: Heart failure type: systolic Qualified Code(s): I50.23 - Acute on chronic systolic (congestive) heart failure (6) COPD exacerbation: Diagnosis at admission but clinically improved rapidly and was not evident at the time of my initial examination Status: Acute (7) CAD (coronary artery disease): History of CABG Status: Chronic Qualifiers: Associated angina: without angina Coronary Disease-Associated Artery/Lesion type: [place] artery [place] vs. transplanted heart: [place] heart Qualified Code(s): I25.10 - Atherosclerotic heart disease of [place] coronary artery without angina pectoris (8) Depression: Suspected diagnosis at this time based on some of the conversations that we have and some emotional lability, tearfulness and all that he and his have been through lately Status: Acute Additional A&P Information Will change to treatment dose Lovenox for planned 7 days and then transition to once a day Xarelto at 20 mg scription to be filled at [facility] pharmacy where he can afford it Continue monitoring INRs with plan to stop Coumadin Venous Doppler of the lower extremities did not reveal DVT Temazepam and Haldol were stopped due to degree of sedation yesterday On Escitalopram which is a new medication On aspirin, atorvastatin Increase Lasix dosing as blood pressure tolerates closer to home dose I have currently held home metolazone which he was only taking as needed Continue breathing treatments I have requested that he be moved to a room with a window if there is any improvement He has been accepted at [facility] but monitoring with change to anticoagulation currently Reviewed case with Dr. Kevin Donohue who is accepting physician at [facility] on Monday, will need to update Scheduled appointment with Dr. Rubin already on September 09 Reviewed events yesterday with , did not get a chance to speak with her today Supportive care otherwise Patient was actually able to participate in discussion about events and plans of care today. While the discussion was inner dispersed with topics not related, he was able to be directed and I think he understands at least for now what has happened going back to the beginning of the hospital stay to today and what the plans are going forward for the moment. Previously I was never sure if he even understood it in the moment Allow natural Attestations Medical Necessity Statement*: Requires ongoing inpatient stay for continued management as noted above. At high risk of acute clinical decline without close monitoring of planned interventions. Coding Level of Care Code Acute Rodent Control Worker for Ilene Pelayo Diagnoses Pulmonary emboli I26.99 Acute cor pulmonale presence: without acute cor pulmonale Chronicity: unspecified Pulmonary embolism type: other Acute encephalopathy G93.40 Acute hyperactive delirium due to another medical condition F05 Shortness of breath R06.02 CHF exacerbation I50.23 Heart failure type: systolic COPD exacerbation J44.1 CAD (coronary artery disease) I25.10 Associated angina: without angina Coronary Disease-Associated Artery/Lesion type: [place] artery [place] vs. transplanted heart: [place] heart Depression F32.9
[2020-08-01] MEDS: atorvastatin 40 mg Tablet 20 MG PO (21:12)
[2020-08-02] VITALS (17 sets, daily range): BP systolic 104–118; BP diastolic 57–78; PULSE 60–86; RESP 16–20; TEMP 36.6–36.8; O2SAT 91–100
[2020-08-02] MEDS: ipratropium-albuterol 3 mL Neb INHALATION ×4 (02:55→20:11)
[2020-08-02 06:08] LABS: Basophils # 0.1 10^3/uL (0.0-0.1); Basophils % 1.5 %; Eosinophils # 0.1 10^3/uL (0.0-0.8); Eosinophils % 1.5 %; Hematocrit 44.9 % (42.0-52.0); Hemoglobin 14.2 g/dL (11.7-16.6); Lymphocytes # 1.4 10^3/uL (0.8-4.8); Lymphocytes % 22.8 %; Mean Corpuscular HGB Conc 31.6 g/dL (30.0-36.0); Mean Corpuscular Hemoglobin 33.2 pg (28.0-34.0); Mean Corpuscular Volume 104.9 fL (80-94); Mean Platelet Volume 11.5 fL (7.4-10.4); Monocytes # 0.7 10^3/uL (0.2-0.9); Monocytes % 10.7 %; Neutrophils # 3.84 10^3/uL (1.8-7.7); Neutrophils % 63.3 %; Nucleated Red Blood Cells % 0 %; Platelet Count 142 10^3/cmm (130-400); Red Blood Count 4.28 10^6/uL (4.1-5.3); Red Cell Distribution Width 14.4 % (12.1-15.1); White Blood Count 6.1 10^3/uL (4.0-10.0)
[2020-08-02 06:21] LABS: INR 3.61 (0.8-1.2)
[2020-08-02 06:27] LABS: Anion Gap 16.3 (5-19); Blood Urea Nitrogen 35 mg/dL (8-23); Calcium 8.7 mg/dL (8.5-10.5); Carbon Dioxide 22 mmol/L (22-29); Chloride 105 mmol/L (98-107); Glucose 98 mg/dL (65-115); Osmolality Calculated 296 mOsm/kg (285-295); Potassium 4.3 mmol/L (3.5-5.1); Sodium 139 mmol/L (136-145)
--- NOTE | 2020-08-02 08:29 | PC.SOCIAL ---
*IMM* Updated with patient, initialled in the chart.
[2020-08-02] MEDS: aspirin 81 mg EC Tablet PO (10:15)
[2020-08-02] MEDS: escitalopram 10 mg Tablet 5 MG PO (10:15)
[2020-08-02] MEDS: FUROsemide 40 mg Tablet 60 MG PO ×2 (10:15→15:31)
[2020-08-02] MEDS: potassium chloride ER 20 mEq Tablet 40 MEQ PO (10:15)
--- NOTE | 2020-08-02 15:44 | PM.PN ---
Subjective Subjective: Interval history: Seems to be doing better the room that has a window in view out the front. He is not as animated as he was in the beginning, more of a flat affect but every now and then will smile. He continues to get confused between his 's hospital stay and his but followed more of the conversation today. Still had to be reminded where he was. Gets anxious with acute episodes of difficulty breathing. Again had a long discussion with patient and his . Today I was able to get from both the patient and confirmed by his that the weekend that they moved to their new house was when Grabiel began having difficulty with breathing and confusion. He had been carrying stuff into the new house when he just suddenly could not do it anymore. He did not seek medical treatment at that point in time. But that was the first day that his breathing limited his ability to do things that they can describe. His states that from that time onward he has gone downhill from there with symptoms as previously described. Vitals/I&O/Wt Last Vital Signs Temp 98.2 F 08/02/20 11:04 Pulse 81 08/02/20 14:09 Resp 20 H 08/02/20 14:04 BP 118/67 08/02/20 11:04 Pulse Ox 100 08/02/20 14:04 08/02/20 08/02/20 08/02/20 06:59 14:59 22:59 Intake Total 120 / 120 Output Total 350 / 570 Balance -350 / 180 120 / 120 Data : 08/02/20 05:42 08/02/20 05:42 A&P Assessment and plan (1) Pulmonary emboli: Multiple, peripheral, bilateral in a patient who has been chronically on Coumadin. After discussion today I think that this has probably been going on for some time and was present at the time of admission to some degree. Hypoxemia could account for some of the symptoms described. Could have been exacerbated by being inconsistently compliant with Coumadin. Have to keep in mind possibility of malignancy. No evidence of DVT noted on ultrasound of the lower extremities. He has had his first Covid vaccine and was actually due for his second Covid vaccine next week but from the best I can gather of the timeline involved, they moved prior to getting Covid vaccine, therefore I think the symptoms probably were present prior to that although would need to be clarified. His platelets are normal. Again he has had previous PE. Currently requiring oxygen therapy at 2 to 3 L by nasal cannula. Becomes acutely more short of breath with exertion. Echocardiogram right atrial pressure 15 mmHg with mild right atrial enlargement Status: Acute Qualifiers: Acute cor pulmonale presence: without acute cor pulmonale Chronicity: unspecified Pulmonary embolism type: other Qualified Code(s): I26.99 - Other pulmonary embolism without acute cor pulmonale (2) Acute encephalopathy: Metabolic from hypoxemia and medications. An acute event occurred on 07/31/2020, in addition to other mental status changes noted throughout the stay and at admission. Initially considered soley due to administration of several sedating medications in the 15 hours prior to being found with decreased level of responsiveness and hypoxemia. Subsequent work-up revealed multiple small peripheral pulmonary emboli as well. Suspect a combination of the 2 is the culprit. He was found not too terribly long after he had been up walking around with therapy. Was noted to be sleepy with breakfast. 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 Status: Acute (3) Acute hyperactive delirium due to another medical condition: Primary diagnosis at admission due to noncompliance with his home medications and after effects of this. I think the PEs that are identified is also contributing factor. The more I have gotten to know him the more I suspect that he has some mild dementia that has not been formally diagnosed. Likely vascular. There are features suggestive of frontal lobe dementia with hallucinations, impulsivity, perseveration of ideas and vocalizations. These types of symptoms have been more prominent in the last 3 to 4 weeks. It should be noted that there has been an excessive amount of stress and change for him over the last 6 months or so. His was hospitalized for an aneurysm and subsequently had to go to rehab after getting a ECONOMICS LECTURER shunt and other care during a prolonged hospital stay. She came home and then they moved to a new house. A beloved dog . A [id number] came to stay to help care for his . Several other significant events have happened and I think all of the changes may have precipitated progression of the symptoms. It should also be noted that he has not been sleeping well for some time and could be his symptoms are secondary to this. He has evidence of sundowning, audio and visual hallucinations, intermixing of different time events that he has experienced with current day, significant and sometimes impulsive behavior change with urinating in inappropriate places, biting the dog, aggressive behavior toward his of 20+ years. Additionally he started refusing his medications. Primary care provider started him on Seroquel but the reports it made him worse. Here he received 10 milligrams of olanzapine in the emergency room and was excessively sedate the following day and woke up without much improvement. He was given some Seroquel here without much improvement. He received a few doses of Ativan that seemed to work for short while. Unfortunately he got his first dose of low-dose Haldol on the same evening that he received the first dose of temazepam along with a dose of Ativan. He was sedate the following day after this combination although it may have been secondary to hypoxemia from PEs. Status: Acute (4) Shortness of breath: At admission felt primarily related to noncompliance with medications leading to suboptimally controlled CHF and COPD. Bilateral pulmonary emboli are probably also contributing factor, especially with right atrial enlargement Status: Acute (5) CHF exacerbation: Echocardiogram shows severely reduced ejection fraction at 10 to 15% with severe global hypokinesis, not new. Has declined AICD. Received IV diuresis initially, transitioned to oral a lower dose than his usual home dose due to blood pressures. Negative fluid balance. Status: Acute Qualifiers: Heart failure type: systolic Qualified Code(s): I50.23 - Acute on chronic systolic (congestive) heart failure (6) COPD exacerbation: Diagnosis at admission but clinically improved rapidly and was not evident at the time of my initial examination Status: Acute (7) CAD (coronary artery disease): History of CABG Status: Chronic Qualifiers: Associated angina: without angina Coronary Disease-Associated Artery/Lesion type: [place] artery [place] vs. transplanted heart: [place] heart Qualified Code(s): I25.10 - Atherosclerotic heart disease of [place] coronary artery without angina pectoris (8) Depression: Suspected diagnosis at this time based on some of the conversations that we have and some emotional lability, tearfulness and all that he and his have been through lately, has been started on low-dose Escitalopram Status: Acute Additional A&P Information Will change to treatment dose Lovenox for planned 7 days and then transition to once a day Xarelto at 20 mg scription to be filled at [facility] pharmacy where he can afford it He can follow-up with both Dr. Travis and Dr. Harper Wean oxygen therapy as able Try some low dose xanax for anxiety, Pco2 was not elevated on recnet ABG Continue monitoring INRs, coumadin stopped 08/01 Venous Doppler of the lower extremities did not reveal DVT On aspirin, atorvastatin Oral Lasix increased to 60 twice daily, still less than usual home dose Home metolazone held Continue breathing treatments He has been accepted at [facility] but monitoring in hospital given need for oxygen and change to anticoagulation currently. Will likely need oxygen at discharge, which patientis not thrilled with Can consider evaluation for possible occult malignancy but with recent mentation issues, anticoagulation and comorbid cardiac issues not a good candidate for intervention, invasive evaluation, or aggressive treatment options presently. Reviewed case with Dr. Kevin Donohue who is accepting physician at [facility] on Monday07/31/20 prior to learning about the pulmonary emboli as had planned on week end discharge, recommend update him or other accepting provider at time of discharge Scheduled appointment with Dr. Rubin already on September 09 to evaluate for recent changes Has been tried on zyprexa, seroquel, one dose haldol, ativan, temazepam with out much improvement, currently trying to redirect as much as able and avoid medications when can Supportive care otherwise Reviewed with patient and and gave both an opportunity to ask questions Allow natural Disposition plan currently still to [facility] after he has been on Lovenox for a couple of days and hopefully we can get him down on his oxygen requirement. He will need transition to Lovenox for continued outpatient use with prescription provided by [address] [place] [address] provider. Attestations Medical Necessity Statement*: Requires ongoing inpatient stay for management of anticoagulation and oxygen therapy in the setting of multiple micropulmonary emboli. Plans are as noted. 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 transplanted heart: [place] heart Depression F32.9
[2020-08-02 16:32] LABS: NT Pro B Type Natriuretic Pept 12765 pg/mL (0-125)
[2020-08-02] MEDS: enoxaparin 100 mg/mL Syringe SUBCUT (17:34)
[2020-08-02] MEDS: atorvastatin 40 mg Tablet 20 MG PO (20:36)
[2020-08-03] VITALS (11 sets, daily range): BP systolic 102–126; BP diastolic 58–77; PULSE 61–101; RESP 16–19; TEMP 36.4–36.8; O2SAT 92–99
[2020-08-03] MEDS: ipratropium-albuterol 3 mL Neb INHALATION ×2 (02:59→08:35)
[2020-08-03] MEDS: enoxaparin 100 mg/mL Syringe SUBCUT (03:32)
[2020-08-03 05:51] LABS: Basophils # 0.1 10^3/uL (0.0-0.1); Basophils % 1.4 %; Eosinophils # 0.1 10^3/uL (0.0-0.8); Eosinophils % 1.2 %; Hematocrit 46.1 % (42.0-52.0); Hemoglobin 14.7 g/dL (11.7-16.6); Lymphocytes # 1.4 10^3/uL (0.8-4.8); Lymphocytes % 23.6 %; Mean Corpuscular HGB Conc 31.9 g/dL (30.0-36.0); Mean Corpuscular Hemoglobin 33.3 pg (28.0-34.0); Mean Corpuscular Volume 104.3 fL (80-94); Mean Platelet Volume 11.7 fL (7.4-10.4); Monocytes # 0.5 10^3/uL (0.2-0.9); Monocytes % 9.4 %; Neutrophils # 3.69 10^3/uL (1.8-7.7); Neutrophils % 64.1 %; Nucleated Red Blood Cells % 0 %; Platelet Count 138 10^3/cmm (130-400); Red Blood Count 4.42 10^6/uL (4.1-5.3); Red Cell Distribution Width 14.4 % (12.1-15.1); White Blood Count 5.8 10^3/uL (4.0-10.0)
[2020-08-03 06:04] LABS: INR 4.32 (0.8-1.2)
[2020-08-03 06:31] LABS: Anion Gap 19.1 (5-19); Blood Urea Nitrogen 35 mg/dL (8-23); Calcium 9.1 mg/dL (8.5-10.5); Carbon Dioxide 25 mmol/L (22-29); Chloride 101 mmol/L (98-107); Glucose 91 mg/dL (65-115); Osmolality Calculated 300 mOsm/kg (285-295); Potassium 4.1 mmol/L (3.5-5.1); Sodium 141 mmol/L (136-145)
[2020-08-03] MEDS: escitalopram 10 mg Tablet 5 MG PO (08:23)
[2020-08-03] MEDS: potassium chloride ER 20 mEq Tablet 40 MEQ PO (08:23)
[2020-08-03] MEDS: aspirin 81 mg EC Tablet PO (08:23)
[2020-08-03] MEDS: FUROsemide 40 mg Tablet 60 MG PO ×2 (08:24→14:47)
--- NOTE | 2020-08-03 12:24 | PM.DCS ---
Discharge Providers Date of Admission: 07/26/20 11:33 Date of Discharge: August 03, 2020 Attending Provider at Admission: Daphnie Palacios MD Attending Provider at Discharge: Joel Rudolph MD Primary Care Provider: Ibrahima Haynes MD Diagnoses at Discharge Discharge Diagnosis (1) Pulmonary emboli: Status: Acute Qualifiers: Pulmonary embolism type: other Chronicity: unspecified Acute cor pulmonale presence: without acute cor pulmonale Qualified Code(s): I26.99 - Other pulmonary embolism without acute cor pulmonale (2) Acute encephalopathy: Status: Acute (3) Acute hyperactive delirium due to another medical condition: Status: Acute (4) Shortness of breath: Status: Acute (5) CHF exacerbation: Status: Acute Qualifiers: Heart failure type: systolic Qualified Code(s): I50.23 - Acute on chronic systolic (congestive) heart failure (6) COPD exacerbation: Status: Acute (7) CAD (coronary artery disease): Status: Chronic Qualifiers: Coronary Disease-Associated Artery/Lesion type: [place] artery [place] vs. transplanted heart: [place] heart Associated angina: without angina Qualified Code(s): I25.10 - Atherosclerotic heart disease of [place] coronary artery without angina pectoris (8) Depression: Status: Acute Reason for Visit Reason for Visit: SHORT OF BREATH Hospital Course Hospital Course This is a 69-year-old male with a past medical history of systolic CHF, COPD, A. fib, recent history of CVA, history of old CVAs, recent history of personality change/visual hallucinations, who is DNR/DNI, who presents to [facility] for complaints of worsening shortness of breath and confusion Patient was admitted to [facility] for acute hypoxic respiratory failure secondary to systolic CHF and COPD exacerbation and extensive pulmonary emboli. For patient's CHF, received inpatient diuresis, was placed on BiPAP, then transition to nasal cannula, and then onto room air clinically improved, discharged on Lasix 60 twice daily, with potassium replacement. Patient's repeat echocardiogram showed severely reduced EF of 10 to 15%, severe global hypokinesis, moderate mitral regurg, moderate aortic regurg, moderate tricuspid regurg, moderate pulmonary hypertension. We will have patient follow-up with cardiology as outpatient. For patient's COPD, received steroids as inpatient, clinically improved Patient was found to have multiple peripheral bilateral pulmonary emboli, while chronically being on Coumadin, likely with underlying noncompliance with Coumadin therapy. Patient will be discharged on therapeutic Lovenox for 10 days, followed by Xarelto 20 mg once daily, these instructions were left with the retirement. Of note patient's INR on discharge was 4.32, no signs of bleeding, I have instructed retirement to recheck INR daily, if INR remains greater than 4, hold Lovenox until INR decreases below 3. Nonetheless patient should receive a total of 10 days of therapeutic Lovenox, followed by Xarelto. For patient's acute encephalopathy, with hyperactive delirium -Likely metabolic from hypoxemia and medications, social stressors, depression -Has evidence of sundowning -Has evidence of frontal dementia -Please look at Dr. Madison's progress note from 08/02/2020 for more detailed information -However given concerns for personality change, hallucinations an attempt was made to perform EEG and MRI however could not be performed -On my examination the day of discharge, he is alert oriented x2, no episodes of agitation, no episodes of confusion, no hallucinations -Has an appointment with Dr. Rubin on September 09 -Discharged on escitalopram Physical Exam Const: COMMON NORMALS: no acute distress ORIENTATION/CONSCIOUSNESS: Yes awake, Yes oriented to person and Yes oriented to place; not oriented to time HENMT: COMMON NORMALS: normocephalic HEAD & SCALP: normocephalic Neck/C-Spine: COMMON NORMALS: no JVD Resp: COMMON NORMALS: normal respiratory effort, No retractions, No use of accessory muscles and clear to auscultation bilaterally AUSCULTATION: clear to auscultation bilaterally Cardio: COMMON NORMALS: no JVD, regular rate, regular rhythm, S1 normal heart sound present and S2 normal heart sound present RATE: regular rate RHYTHM: regular rhythm HEART SOUNDS: S1 normal heart sound present and S2 normal heart sound present GI: COMMON NORMALS: Normal to inspection, nondistended, normoactive bowel sounds present, Soft to palpation, non-tender, No hepatosplenomegaly present, no masses and no bruits PALPATION: Yes Soft to palpation and Yes No hepatosplenomegaly present Extremity: COMMON NORMALS: capillary refill normal, no clubbing, cyanosis or edema, no calf tenderness and no pedal edema Neuro: SENSORIUM/ORIENTATION: Yes oriented to person, Yes oriented to place and No oriented to time Psych: COMMON NORMALS: mental status grossly normal Discharge Data Data Completed and Pending: Completed Studies During Hospitalization Category Date Time Status CT angio chest PE protcl [id number] Urge nt Cat Scan 07/31/20 11:[address] head wo con* 7 0450 Urgent Cat Scan 07/26/20 00:[address] head wo con* 7 0450 Urgent Cat Scan 07/31/20 11:33 Completed XR chest 1V [id number] Routine Exams 07/26/20 01:58 Completed XR chest 1V [place] ble [id number] Stat Exams 07/31/20 10:27 Completed CV carotid duplex BI* [id number] Routine Ultrasound 07/26/20 08:19 Completed CV echo complete* [id number] Routine Ultrasound 07/26/20 08:19 [place] [id number] Routin e Ultrasound 07/31/20 15:13 Completed Labs from last 24 hours 08/03/20 08/03/20 08/03/20 05:01 05:01 05:01 WBC 5.8 RBC 4.42 Hgb 14.7 Hct 46.1 MCV 104.3 H MCH 33.3 MCHC 31.9 RDW 14.4 Plt Count 138 MPV 11.7 H Neut % (Auto) 64.1 Lymph % (Auto) 23.6 [place] % (Auto) 9.4 Eos % (Auto) 1.2 Baso % (Auto) 1.4 Neut # (Auto) 3.69 Lymph # (Auto) 1.4 [place] # (Auto) 0.5 Eos # (Auto) 0.1 Baso # (Auto) 0.1 Nucleated RBC % (a uto) 0 Nucleated RBCs # 0.0 PT 43.10 H INR 4.32 H Sodium 141 Potassium 4.1 Chloride 101 Carbon Dioxide 25 Anion Gap 19.1 H BUN 35 H Creatinine 1.2 GFR Calculation Not Reportable Glucose 91 Calculated Osmolal ity 300 H Calcium 9.1 NT-Pro-B Natriuret Pep 08/02/20 05:42 WBC RBC Hgb Hct MCV MCH MCHC RDW Plt Count MPV Neut % (Auto) Lymph % (Auto) [place] % (Auto) Eos % (Auto) Baso % (Auto) Neut # (Auto) Lymph # (Auto) [place] # (Auto) Eos # (Auto) Baso # (Auto) Nucleated RBC % (a uto) Nucleated RBCs # PT INR Sodium Potassium Chloride Carbon Dioxide Anion Gap BUN Creatinine GFR Calculation Glucose Calculated Osmolal ity Calcium NT-Pro-B Natriuret Pep 67568 H Vitals: Last Vital Signs Temp 98.2 F 08/03/20 07:08 Pulse 90 08/03/20 08:46 Resp 18 08/03/20 08:35 BP 124/66 08/03/20 07:08 Pulse Ox 96 08/03/20 08:35 Discharge Plan Discharge Patient Disposition: Xfer SNF Condition: Stable Prescriptions: New furosemide 40 mg Tablet 60 mg PO BID@08,14 30 Days Qty: 90 RF: 0 escitalopram oxalate 10 mg Tablet 5 mg PO DAILY 30 Days Qty: 30 RF: 0 enoxaparin 100 mg/mL Syringe 100 mg SUBCUT Q12H 10 Days Qty: 20 RF: 0 Continued aspirin [Adult Low Dose Aspirin] 81 mg tablet,delayed release (DR/EC) 81 mg PO DAILY@1000 RF: 0 (DME) nebulizer accessories Kit See Rx Instructions .ROUTE .MEDSUPPLY Qty: 1 RF: 0 potassium chloride [Klor-Con M20] 20 mEq tablet,ER particles/crystals 20 meq PO BID@1000,2200 RF: 0 simvastatin 40 mg tablet 40 mg PO DAILY@1000 RF: 0 mupirocin 2 % ointment See Rx Instructions .ROUTE .COMPLEX RF: 0 albuterol sulfate 90 mcg/actuation HFA aerosol inhaler 1 inh INHALATION Q6H PRN (Reason: Shortness Of Breath) RF: 0 albuterol sulfate 2.5 mg/0.5 mL Solution For Nebulization 2.5 mg INHALATION Q4H PRN (Reason: Shortness Of Breath) RF: 0 Discontinued furosemide 80 mg tablet 80 mg PO BID@1000,2200 RF: 0 albuterol sulfate [Proventil HFA] 90 mcg/actuation HFA aerosol inhaler 90 mcg INHALATION PRN RF: 0 metolazone 2.5 mg tablet 2.5 mg PO DAILY PRN (Reason: UNKNOWN) RF: 0 warfarin 4 mg tablet 8 mg PO BID@0800,2200 RF: 0 cephalexin 500 mg capsule 500 mg PO TID@1000,2200 RF: 0 Discharge Orders: Discharge Order (Routine); Ordered 08/03/20 Ordered By: Joel Rudolph Other Ambulatory Orders: Prothrombin Time INR (Routine) Timeframe: 1 Day Facility: [facility] - Location: Lab - Main Lab Ordered By: Joel Rudolph Referrals: Ibrahima Haynes MD [Primary Care Provider] - 08/12/20 9:00 am Discharge Diet: Advance as tolerated Discharge Activity: Resume usual activity Patient Instructions: Opioid Safety Activity Restrictions/Additional Instructions: To schedule your second Moderna Vaccine for COVID please sign up on the [employer] website or can call the hotline number with questions. Website: https://covidvaccine.[place].gov/ Hotline# 703.906.1840 -For retirement -INR on discharge was 4.32 -Patient is being discharged on therapeutic Lovenox twice daily for 10 days - check INR daily, if INR remains greater than 4, hold Lovenox, until INR is less than 3 -After a total of 10 days of being on therapeutic Lovenox, Lovenox can be stopped, and switch to Xarelto 20 mg daily Discharge Attestations Time Spent in Discharge Care*: less than 30 min Quality Metrics Clinical Quality Measures During this hospital stay, did patient experience: None Coding Level of Care Code Acute g [facility] note Diagnoses Pulmonary emboli I26.99 Pulmonary embolism type: other Chronicity: unspecified Acute cor pulmonale presence: without acute cor pulmonale Acute encephalopathy G93.40 Acute hyperactive delirium due to another medical condition F05 Shortness of breath R06.02 CHF exacerbation I50.23 Heart failure type: systolic COPD exacerbation J44.1 CAD (coronary artery disease) I25.10 Coronary Disease-Associated Artery/Lesion type: [place] artery [place] vs. transplanted heart: [place] heart Associated angina: without angina Depression F32.9
[2020-08-03] MEDS: ALPRAZolam 0.25 mg Tablet 0.125 MG PO (15:22)
[2020-08-03] MEDS: TRAMadol 50 mg Tablet 25 MG PO (16:05)
--- NOTE | 2020-08-03 16:11 | PC.NURSE ---
Patient discharged at this time in the care of transport. IV catheter removed, tip intact. Patient in stable condition.
== END 2020-08-03 16:24 | disposition skilled nursing facility (03) | DRG 291 ==
LOC: ER 23:41 → CSU 23:58 → MEDSURG 07-31 02:48
PROVIDERS: Hospitalist; Admitting Provider Internal Medicine; Emergency Provider Family Medicine; PCP Family Medicine; Visit Provider Family Medicine
DX: I50.23 Acute on chronic systolic (congestive) heart failure (principal); J96.01 Acute respiratory failure with hypoxia; I26.99 Other pulmonary embolism without acute cor pulmonale; G92 Toxic encephalopathy; J44.1 Chronic obstructive pulmonary disease with (acute) exacerbation; F05 Delirium due to known physiological condition; I25.10 Atherosclerotic heart disease of native coronary artery without angina pectoris; I48.91 Unspecified atrial fibrillation; T42.75XA Adverse effect of unspecified antiepileptic and sedative-hypnotic drugs, initial encounter; Y92.239 Unspecified place in hospital as the place of occurrence of the external cause; F32.9 Major depressive disorder, single episode, unspecified; F17.210 Nicotine dependence, cigarettes, uncomplicated; I73.9 Peripheral vascular disease, unspecified; Z86.718 Personal history of other venous thrombosis and embolism; Z79.01 Long term (current) use of anticoagulants; Z86.73 Personal history of transient ischemic attack (TIA), and cerebral infarction without residual deficits; Z95.5 Presence of coronary angioplasty implant and graft; Z91.128 Patient's intentional underdosing of medication regimen for other reason
CPT/HCPCS: 36415; 36600; 70450; 71045; 71275; 80048; 80053; 81003; 82140; 82607; 82746; 82803; 83605; 83735; 83880; 84100; 84145; 84146; 84443; 84484; 85025; 85378; 85610; 86140; 87426; 87804; 93005; 93306; 93880; 93970; 94640; 96372; 97110; 97116; 97161; 97530; 99285; G0378; J1650; J2060; J3490; Q9967

== ENCOUNTER 2020-08-05 23:23 | Outpatient (CLI) | payer MEDICARE, OTHER, SELFPAY ==
[2020-08-05 23:47] LABS: INR 3.05 (0.8-1.2)
== END 2020-08-05 23:24 | disposition home or self-care (01) ==
LOC: LAB 23:24
PROVIDERS: PCP Family Medicine; Visit Provider Internal Medicine
DX: I26.90 Septic pulmonary embolism without acute cor pulmonale (principal)
CPT/HCPCS: 85610

== ENCOUNTER 2020-08-06 13:33 | Outpatient (CLI) | payer OTHER, SELFPAY ==
[2020-08-06 15:06] LABS: INR 2.69 (0.8-1.2)
== END 2020-08-06 13:34 | disposition home or self-care (01) ==
PROVIDERS: PCP Family Medicine; Visit Provider Nurse Practitioner Family
DX: Z79.01 Long term (current) use of anticoagulants (principal)
CPT/HCPCS: 85610

== ENCOUNTER 2020-08-07 15:54 | Outpatient (CLI) | payer MEDICARE, OTHER, SELFPAY ==
[2020-08-07 17:11] LABS: INR 7.09 (0.8-1.2)
== END 2020-08-07 15:55 | disposition home or self-care (01) ==
PROVIDERS: Family Medicine; PCP Family Medicine; Visit Provider Internal Medicine
DX: I26.99 Other pulmonary embolism without acute cor pulmonale (principal)
CPT/HCPCS: 85610

== ENCOUNTER 2020-08-07 19:48 | Outpatient (CLI) | payer MEDICARE, OTHER, SELFPAY ==
[2020-08-07 20:34] LABS: INR 5.08 (0.8-1.2)
== END 2020-08-07 19:49 | disposition home or self-care (01) ==
LOC: LAB 19:56
PROVIDERS: PCP Family Medicine; Visit Provider Internal Medicine
DX: I26.99 Other pulmonary embolism without acute cor pulmonale (principal)
CPT/HCPCS: 85610

== ENCOUNTER 2020-08-11 10:38 | Outpatient (CLI) | payer OTHER, SELFPAY ==
[2020-08-11 11:29] LABS: INR 1.36 (0.8-1.2)
== END 2020-08-11 10:39 | disposition home or self-care (01) ==
PROVIDERS: PCP Family Medicine; Visit Provider Internal Medicine
DX: Z79.01 Long term (current) use of anticoagulants (principal)
CPT/HCPCS: 85610

== ENCOUNTER 2020-08-24 15:21 | Outpatient (CLI) | payer OTHER, MEDICARE, SELFPAY ==
[2020-08-24 17:42] LABS: Potassium 2.4 mmol/L (3.5-5.1)
== END 2020-08-24 15:22 | disposition home or self-care (01) ==
PROVIDERS: PCP Family Medicine; Visit Provider Nurse Practitioner Family
DX: E87.6 Hypokalemia (principal)
CPT/HCPCS: 84132

== ENCOUNTER 2020-08-27 10:17 | Outpatient (CLI) | payer MEDICARE, SELFPAY ==
[2020-08-27 10:44] LABS: Potassium 4.3 mmol/L (3.5-5.1)
== END 2020-08-27 10:18 | disposition home or self-care (01) ==
PROVIDERS: PCP Family Medicine; Visit Provider Nurse Practitioner Family
DX: E87.5 Hyperkalemia (principal)
CPT/HCPCS: 84132

== ENCOUNTER → 2020-08-31 15:34 | Outpatient (BNVA) | payer MEDICARE, OTHER, SELFPAY | PROVIDERS: PCP Family Medicine; Referring Provider Family Medicine; Visit Provider Specialist | DX: F29 Unspecified psychosis not due to a substance or known physiological condition (principal); G30.9 Alzheimer's disease, unspecified; F02.80 Dementia in other diseases classified elsewhere, unspecified severity, without behavioral disturbance, psychotic disturbance, mood disturbance, and anxiety; F32.9 Major depressive disorder, single episode, unspecified; I48.19 Other persistent atrial fibrillation; I50.9 Heart failure, unspecified; F17.210 Nicotine dependence, cigarettes, uncomplicated | CPT/HCPCS: 96116; 99205 ==